=== PATIENT | female | born 1940 | race Caucasian/White ===

== ENCOUNTER 2023-05-06 10:40 | Emergency (ER) | payer MEDICARE ==
--- NOTE | 2023-05-06 11:14 | ED ---
General Adult HPI - General Chief complaint: Upper Respiratory Infection Stated complaint: Hemoptysis Time Seen by Provider: 05/06/23 10:51 Source: patient, EMS, RN notes reviewed Mode of arrival: EMS Limitations: no limitations - History of Present Illness Initial comments: Patient is an 82-year-old female presenting to the ER via EMS with chief complai nt of coughing up blood. Patient was sent here by her PCP, Dr. Kong. Patient states she has been coughing up blood for the past week. Patient states she has been having mild shortness of breath with exertion. She states it is hard to vaccuum for awhile now. Patient also reports she recently had a medication changed to amlodipine for blood pressure. Patient states her blood pressures have been running somewhat high denies any headache, double vision, nausea/vomiting or dizziness. Patient is a daily smoker of 10-12 cigarettes. Patient reports she has no other medical history. Patient denies any recent fevers, chills, night sweats, congestion, runny nose, chest pain, constipation/diarrhea, peripheral edema. - Related Data Home Medications Medication Instructions Recorded Confirmed Atorvastatin [Lipitor] 40 mg PO DAILY 05/06/23 05/06/23 Cetirizine HCl 10 mg PO DAILY 05/06/23 05/06/23 Docusate [Colace] 100 mg PO HS 05/06/23 05/06/23 Fluticasone/Umeclidin/Vilanter 1 puff INHALATION RT-DAILY 05/06/23 05/06/23 [Trelegy Ellipta 100-62.5-25] Montelukast [Singulair] 10 mg PO DAILY 05/06/23 05/06/23 Omeprazole 40 mg PO DAILY 05/06/23 05/06/23 Triamterene-Hctz 75-50Mg [Maxzide 1 tab PO DAILY 05/06/23 05/06/23 75-50] amLODIPine [Norvasc] 2.5 mg PO BID 05/06/23 05/06/23 Allergies Allergy/AdvReac Type Severity Reaction Status Date / Time lisinopril AdvReac Cough Verified 05/06/23 12:51 Review of Systems ROS Statement: Those systems with pertinent positive or pertinent negative responses have been documented in the HPI. ROS Other: All systems not noted in ROS Statement are negative. Past Medical History Past Medical History: Asthma, COPD, Hyperlipidemia, Hypertension, Renal Disease Additional Past Medical History / Comment(s): anemia, CKD stage 3, History of Any Multi-Drug Resistant Organisms: None Reported Past Surgical History: Hysterectomy, Joint Replacement Additional Past Surgical History / Comment(s): Bypass on AAA, knee replacement, cataracts Past Psychological History: No Psychological Hx Reported Smoking Status: Current every day smoker Past Alcohol Use History: None Reported Past Drug Use History: None Reported General Exam Limitations: no limitations General appearance: alert, in no apparent distress Head exam: Present: atraumatic, normocephalic, normal inspection ENT exam: Present: normal exam, normal oropharynx, mucous membranes moist Neck exam: Present: normal inspection. Absent: tenderness, meningismus, ly mphadenopathy Respiratory exam: Present: normal lung sounds bilaterally. Absent: respiratory distress, wheezes, rales, rhonchi, stridor Cardiovascular Exam: Present: regular rate, normal rhythm, normal heart sounds. Absent: systolic murmur, diastolic murmur, rubs, gallop, clicks GI/Abdominal exam: Present: soft, normal bowel sounds. Absent: distended, tenderness, guarding, rebound, rigid Neurological exam: Present: alert, oriented X3, CN II-XII intact Psychiatric exam: Present: normal affect, normal mood Skin exam: Present: warm, dry, intact, normal color. Absent: rash Course Vital Signs 05/06/23 05/06/23 05/06/23 10:52 10:53 10:57 Temperature 98.8 F Pulse Rate 77 75 Respiratory 18 18 Rate Blood Pressure 195/102 195/102 O2 Sat by Pulse 96 100 Oximetry 05/06/23 05/06/23 05/06/23 11:00 11:10 11:20 Temperature Pulse Rate 75 74 75 Respiratory Rate Blood Pressure 201/94 O2 Sat by Pulse 98 96 98 Oximetry 05/06/23 05/06/23 05/06/23 11:30 11:40 11:50 Temperature Pulse Rate 69 72 75 Respiratory Rate Blood Pressure 195/96 O2 Sat by Pulse 95 96 93 L Oximetry 05/06/23 05/06/23 05/06/23 12:00 12:10 12:20 Temperature Pulse Rate 73 73 73 Respiratory Rate Blood Pressure O2 Sat by Pulse 96 95 95 Oximetry 05/06/23 05/06/23 05/06/23 12:30 12:40 12:50 Temperature Pulse Rate 75 76 Respiratory Rate Blood Pressure 195/96 180/78 O2 Sat by Pulse 96 91 L Oximetry 05/06/23 05/06/23 05/06/23 13:00 13:10 13:20 Temperature Pulse Rate 71 75 73 Respiratory Rate Blood Pressure 165/88 O2 Sat by Pulse 96 96 95 Oximetry 05/06/23 05/06/23 05/06/23 13:30 13:40 13:50 Temperature Pulse Rate 72 71 71 Respiratory Rate Blood Pressure O2 Sat by Pulse 92 L 94 L 96 Oximetry 05/06/23 05/06/23 14:00 14:10 Temperature Pulse Rate 71 70 Respiratory Rate Blood Pressure 188/97 O2 Sat by Pulse 96 96 Oximetry Medical Decision Making - Medical Decision Making Was pt. sent in by a medical professional or institution (, PA, [employer]ER, urgent care, hospital, or longterm...) When possible be specific @ -Dr. Kong due to hemoptysis Did you speak to anyone other than the patient for history (EMS, parent, family, police, friend...)? What history was obtained from this source @ -No Did you review nursing and triage notes (agree or disagree)? Why? @ -I reviewed and agree with nursing and triage notes Were old charts reviewed (outside hosp., previous admission, EMS record, old EKG, old radiological studies, urgent care reports/EKG's, longterm records)? Report findings @ -No old charts were reviewed Differential Diagnosis (chest pain, altered mental status, abdominal pain women, abdominal pain men, vaginal bleeding, weakness, fever, dyspnea, syncope, headache, dizziness, GI bleed, back pain, seizure, CVA, palpatations, mental health, musculoskeletal)? @ -Differential Dyspnea: Coronary syndrome, arrhythmia, tamponade, asthma, COPD, pulmonary embolism, pneumonia, pneumothorax, pulmonary effusion, anaphy laxis, diabetic ketoacidosis, flailed chest, pulmonary contusion, diaphragmatic rupture, anemia, neuromuscular, this is not meant to be an all-inclusive list. EKG interpreted by me (3pts min.). @ -As above X-rays interpreted by me (1pt min.). @ -Chest xray was significant for COPD changes. No definitive acute cardiopulmonary process. CT interpreted by me (1pt min.). @ -CTA chest showed no evidence of pulmonary embolism. There were chronic emphysematous changes. Marked honeycombing in the RUL. No mass or nodule present. There is an enlarged 18 mm hilar lymph node on the right. No other acute cardiopulmonary process. U/S interpreted by me (1pt. min.). @ -None done What testing was considered but not performed or refused? (CT, X-rays, U/S, labs)? Why? @ -None What meds were considered but not given or refused? Why? @ -None Did you discuss the management of the patient with other professionals (professionals i.e. , PA, [employer]ST[employer]ER, lab, RT, psych nurse, child protective services social worker, freight car cleaner [employer], teacher, recruitment officer, caseworker)? Give summary @ -No Was smoking cessation discussed for >3mins.? @ -I discussed smoking cessation for greater than 3 minutes. The risk of smoking were discussed with the patient including but not limited to risks of cancer, stroke, coronary artery disease and COPD. Also discussed with patient were multiple methods of quitting smoking. Lastly we discussed the financial cost of smoking. Was critical care preformed (if so, how long)? @ -No Were there social determinants of health that impacted care today? How? (Homelessness, low income, unemployed, alcoholism, drug addiction, transportation, low edu. Level, literacy, decrease access to med. care, long-term, rehab)? @ -No Was there de-escalation of care discussed even if they declined (Discuss DNR or withdrawal of care, Hospice)? DNR status @ -No What co-morbidities impacted this encounter? (DM, HTN, Smoking, COPD, CAD, Cancer, CVA, ARF, Chemo, Hep., AIDS, mental health diagnosis, sleep apnea, morbid obesity)? @ -Hypertension Was patient admitted / discharged? Hospital course, mention meds given and route, prescriptions, significant lab abnormalities, going to OR and other pertinent info. @ -Discharge. Patient is an 82-year-old female presented ER with chief complaint of hemoptysis. Upon examination, patient's vital signs were stable. Physical exam was unremarkable. Labs obtained in the ER were significant for white blood cell count is 7.5, d-dimer was 3.71, PT 9.8, APTT 21.0. Cephid was negative. Chest xray was significant for COPD changes. No definitive acute cardiopulmonary process. Due to elevated d-dimer CTA was performed. CTA chest showed no evidence of pulmonary embolism. There were chronic emphysematous changes. Marked honeycombing in the RUL. No mass or nodule present. There is an enlarged 18 mm hilar lymph node on the right. No other acute cardiopulmonary process. EKG showed normal sinus rhythm with no acute ST segment or T-wave abnormalities noted. Labs and imaging findings were discussed with patient and family, at bedside. I discussed smoking cessation for greater than 3 minutes. The risk of smoking were discussed with the patient including but not limited to risks of cancer, stroke, coronary artery disease and COPD. Also discussed with patient were multiple methods of quitting smoking. Lastly we discussed the financial cost of smoking. Patient will be discharged in stable condition with follow-up to PCP. Return parameters were discussed. Patient expressed understanding and agreement with care plan. Undiagnosed new problem with uncertain prognosis? @ -No Drug Therapy requiring intensive monitoring for toxicity (Heparin, Nitro, Insulin, Cardizem)? @ -No Were any procedures done? @ -No Diagnosis/symptom? @ -Bronchitis Acute, or Chronic, or Acute on Chronic? @ -Acute on Chronic Uncomplicated (without systemic symptoms) or Complicated (systemic symptoms)? @ -Complicated Side effects of treatment? @ -No Exacerbation, Progression, or Severe Exacerbation? @ -No Poses a threat to life or bodily function? How? (Chest pain, USA, SC, pneumonia, PE, COPD, DKA, ARF, appy, cholecystitis, CVA, Diverticulitis, Homicidal, Suicidal, threat to staff... and all critical care pts) @ -Yes, COPD can casue hypoxia which is life threatening. - Lab Data Result diagrams: 05/06/23 12:00 05/06/23 12:02 Lab Results 05/06/23 05/06/23 05/06/23 Range/Units 12:00 12:02 12:02 WBC 7.5 (3.8-10.6) k/uL RBC 4.18 (3.80-5.40) m/uL Hgb 11.5 (11.4-16.0) gm/dL Hct 34.7 (34.0-46.0) % MCV 82.9 (80.0-100.0) fL MCH 27.5 (25.0-35.0) pg MCHC 33.1 (31.0-37.0) g/dL RDW 23.9 H (11.5-15.5) % Plt Count 333 (150-450) k/uL MPV 7.7 Neutrophils % 68 % Lymphocytes % 19 % Monocytes % 9 % Eosinophils % 2 % Basophils % 1 % Neutrophils # 5.1 (1.3-7.7) k/uL Lymphocytes # 1.4 (1.0-4.8) k/uL Monocytes # 0.6 (0-1.0) k/uL Eosinophils # 0.1 (0-0.7) k/uL Basophils # 0.0 (0-0.2) k/uL Anisocytosis Moderate Microcytosis Moderate PT 9.8 L (10.0-12.5) sec INR 0.9 (<1.2) APTT 21.0 L (22.0-30.0) sec D-Dimer 3.71 H (<0.60) mg/L FEU Sodium 133 L (137-145) mmol/L Potassium 3.2 L (3.5-5.1) mmol/L Chloride 96 L (98-107) mmol/L Carbon Dioxide 23 (22-30) mmol/L Anion Gap 14 mmol/L BUN 26 H (7-17) mg/dL Creatinine 0.88 (0.52-1.04) mg/dL Est GFR (CKD-EPI)AfAm 71 (>60 ml/min/1.73 sqM) Est GFR (CKD-EPI)NonAf 62 (>60 ml/min/1.73 sqM) Glucose 93 (74-99) mg/dL Plasma Lactic Acid Claudio (0.7-2.0) mmol/L Calcium 9.3 (8.4-10.2) mg/dL Total Bilirubin 0.5 (0.2-1.3) mg/dL AST 29 (14-36) U/L ALT 15 (4-34) U/L Alkaline Phosphatase 93 (38-126) U/L Troponin I (0.000-0.034) ng/mL Total Protein 6.7 (6.3-8.2) g/dL Albumin 4.1 (3.5-5.0) g/dL Influenza Type A (PCR) (Not Detectd) Influenza Type B (PCR) (Not Detectd) RSV (PCR) (Not Detectd) SARS-CoV-2 (PCR) (Not Detectd) 05/06/23 05/06/23 05/06/23 Range/Units 12:02 12:02 12:02 WBC (3.8-10.6) k/uL RBC (3.80-5.40) m/uL Hgb (11.4-16.0) gm/dL Hct (34.0-46.0) % MCV (80.0-100.0) fL MCH (25.0-35.0) pg MCHC (31.0-37.0) g/dL RDW (11.5-15.5) % Plt Count (150-450) k/uL MPV Neutrophils % % Lymphocytes % % Monocytes % % Eosinophils % % Basophils % % Neutrophils # (1.3-7.7) k/uL Lymphocytes # (1.0-4.8) k/uL Monocytes # (0-1.0) k/uL Eosinophils # (0-0.7) k/uL Basophils # (0-0.2) k/uL Anisocytosis Microcytosis PT (10.0-12.5) sec INR (<1.2) APTT (22.0-30.0) sec D-Dimer (<0.60) mg/L FEU Sodium (137-145) mmol/L Potassium (3.5-5.1) mmol/L Chloride (98-107) mmol/L Carbon Dioxide (22-30) mmol/L Anion Gap mmol/L BUN (7-17) mg/dL Creatinine (0.52-1.04) mg/dL Est GFR (CKD-EPI)AfAm (>60 ml/min/1.73 sqM) Est GFR (CKD-EPI)NonAf (>60 ml/min/1.73 sqM) Glucose (74-99) mg/dL Plasma Lactic Acid Claudio 0.8 (0.7-2.0) mmol/L Calcium (8.4-10.2) mg/dL Total Bilirubin (0.2-1.3) mg/dL AST (14-36) U/L ALT (4-34) U/L Alkaline Phosphatase (38-126) U/L Troponin I 0.012 (0.000-0.034) ng/mL Total Protein (6.3-8.2) g/dL Albumin (3.5-5.0) g/dL Influenza Type A (PCR) Not Detected (Not Detectd) Influenza Type B (PCR) Not Detected (Not Detectd) RSV (PCR) Not Detected (Not Detectd) SARS-CoV-2 (PCR) Not Detected (Not Detectd) - EKG Data -: EKG Interpreted by Me EKG Comments: EKG taken at 11:05 shows a normal sinus rhythm with no acute ST segment or T- wave abnormalities noted. Ventricular rate 72, NV interval 158, QRS duration 88, QT/QTC 410/435. - Radiology Data Radiology results: report reviewed, image reviewed Disposition Clinical Impression: Emphysema of lung Disposition: HOME SELF-CARE Condition: Stable Instructions (If sedation given, give patient instructions): How to Stop Smoking (ED) Additional Instructions: Please return to the Emergency Department if symptoms worsen or any other concerns. Is patient prescribed a controlled substance at d/c from ED?: No Referrals: Gilson Kong MD [Primary Care Provider] - 1-2 days Time of Disposition: 16:33
[2023-05-06 12:15] LABS: Anisocytosis Moderate; Basophils % (A) 1 %; Eosinophils # (A) 0.1 k/uL (0-0.7); Eosinophils % (A) 2 %; HCT 34.7 % (34.0-46.0); HGB 11.5 gm/dL (11.4-16.0); Lymphocytes # (A) 1.4 k/uL (1.0-4.8); Lymphocytes % (A) 19 %; MCH 27.5 pg (25.0-35.0); MCHC 33.1 g/dL (31.0-37.0); MCV 82.9 fL (80.0-100.0); Mean Platelet Volume 7.7; Microcytosis Moderate; Monocytes # (A) 0.6 k/uL (0-1.0); Monocytes % (A) 9 %; Neutrophils # (A) 5.1 k/uL (1.3-7.7); Neutrophils % (A) 68 %; Platelet Count 333 k/uL (150-450); RBC 4.18 m/uL (3.80-5.40); RDW 23.9 % (11.5-15.5); WBC 7.5 k/uL (3.8-10.6)
[2023-05-06 12:29] LABS: ALT 15 U/L (4-34); AST 29 U/L (14-36); African American GFR (CKD) 71 (>60 ml/min/1.73 sqM); Albumin 4.1 g/dL (3.5-5.0); Alkaline Phosphatase 93 U/L (38-126); Anion Gap 14 mmol/L; Blood Urea Nitrogen 26 mg/dL (7-17); Calcium 9.3 mg/dL (8.4-10.2); Carbon Dioxide 23 mmol/L (22-30); Chloride 96 mmol/L (98-107); Glucose 93 mg/dL (74-99); Non-African American GFR(CKD) 62 (>60 ml/min/1.73 sqM); Potassium 3.2 mmol/L (3.5-5.1); Sodium 133 mmol/L (137-145); Total Bilirubin 0.5 mg/dL (0.2-1.3); Total Protein 6.7 g/dL (6.3-8.2)
[2023-05-06 12:41] LABS: INR 0.9 (<1.2); Prothrombin Time 9.8 sec (10.0-12.5)
--- NOTE | 2023-05-06 12:52 | XR ---
EXAMINATION TYPE: XR chest 2V DATE OF EXAM: 05/06/2023 COMPARISON: None HISTORY: 82 year-old female shortness of breath, difficulty breathing, coughing up blood TECHNIQUE: PA and lateral views FINDINGS: Heart normal size. Atherosclerotic arch calcifications. Mild interstitial prominence. Mild hyperinfla tion. No consolidation or pleural effusion. Endovascular abdominal aortic stent graft. IMPRESSION: COPD. No definite acute process.
--- NOTE | 2023-05-06 15:31 | CT ---
EXAMINATION TYPE: CT chest angio for PE DATE OF EXAM: 05/06/2023 COMPARISON: None HISTORY: Elevated d-dimer and hemopytsis. CT DLP: 224.5 mGycm Automated exposure control for dose reduction was used. CONTRAST: CT Chest for pulmonary embolism performed with with IV Contrast, patient injected with 64ml mL of Iso brian 370. FINDINGS: There are moderate emphysematous changes. There is marked honeycombing in the right upper lobe. There is no lung mass or nodule. There is no pleural effusion or pneumothorax. The great vessels chest are normal and there is no axillary or mediastinal adenopathy. There is an en larged 18 mm right hilar lymph node. There are no filling defects within the pulmonary arteries or branches and no evidence of pulmonary e mbolism. IMPRESSION: 1. No evidence of pulmonary embolism. 2. Chronic lung changes as described above. 3. No acute cardiopulmonary disease.
[2023-05-06 17:40] VITALS: BP 125/108; PULSE 78; RESP 16; TEMP 98.9
== END 2023-05-06 17:27 | disposition home or self-care (01) ==
LOC: EC 10:40
DX: J43.9 Emphysema, unspecified (principal); J44.89 Other specified chronic obstructive pulmonary disease; E78.5 Hyperlipidemia, unspecified; I10 Essential (primary) hypertension; F17.200 Nicotine dependence, unspecified, uncomplicated; Z79.899 Other long term (current) drug therapy; Z88.8 Allergy status to other drugs, medicaments and biological substances; Z20.822 Contact with and (suspected) exposure to COVID-19
CPT/HCPCS: 99285; 36415; 93005; 85379; 80053; 83605; 84484; 85025; 85610; 85730; 87636; 71046; 71275; Q9967

== ENCOUNTER 2023-12-02 21:56 | Inpatient (IN) | payer MEDICARE ==
--- NOTE | 2023-12-02 21:59 | ED ---
SOB HPI - General Stated Complaint: SOB Time Seen by Provider: 12/02/23 21:56 Source: RN notes reviewed, old records reviewed Limitations: no limitations - History of Present Illness Initial Comments: This is a 83-year-old female to ER for severe dyspnea and shortness of breath. Patient has history of COPD and presents in new onset atrial fibrillation with RVR with significantly high heart rate. MD Complaint: shortness of breath, cough, chest pain, "asthma attack", anxiety -: days(s) Radiation: back Severity: severe Severity scale (1-10): 8 Quality: aching Consistency: constant Improves With: nothing Worsens With: lying flat Known History Of: COPD, asthma Context: anxiety Associated Symptoms: cough, sputum production Treatments Prior to Arrival: none - Related Data Home Medications Medication Instructions Recorded Confirmed Atorvastatin [Lipitor] 40 mg PO DAILY 05/06/23 12/03/23 Cetirizine HCl 10 mg PO DAILY 05/06/23 12/03/23 Montelukast [Singulair] 10 mg PO DAILY 05/06/23 12/03/23 Omeprazole 40 mg PO DAILY 05/06/23 12/03/23 Triamterene-Hctz 75-50Mg [Maxzide 1 tab PO DAILY 05/06/23 12/03/23 75-50] amLODIPine [Norvasc] 2.5 mg PO DAILY 05/06/23 12/03/23 Cyclobenzaprine [Flexeril] 5 mg PO TID 12/03/23 12/03/23 carvediloL [Coreg] 6.25 mg PO BID 12/03/23 12/03/23 Allergies Allergy/AdvReac Type Severity Reaction Status Date / Time lisinopril AdvReac Cough Verified 12/03/23 09:19 Review of Systems ROS Statement: Those systems with pertinent positive or pertinent negative responses have been documented in the HPI. ROS Other: All systems not noted in ROS Statement are negative. Past Medical History Past Medical History: Asthma, COPD, Hyperlipidemia, Hypertension, Renal Disease Additional Past Medical History / Comment(s): anemia, CKD stage 3, History of Any Multi-Drug Resistant Organisms: None Reported Past Surgical History: Hysterectomy, Joint Replacement Additional Past Surgical History / Comment(s): Bypass on AAA, knee replacement, cataracts Past Psychological History: No Psychological Hx Reported Smoking Status: Current every day smoker Past Alcohol Use History: None Reported Past Drug Use History: None Reported General Exam General appearance: alert, in no apparent distress Head exam: Present: atraumatic, normocephalic, normal inspection Eye exam: Present: normal appearance, PERRL, EOMI. Absent: scleral icterus, conjunctival injection, periorbital swelling ENT exam: Present: normal exam, mucous membranes moist Neck exam: Present: normal inspection. Absent: tenderness, meningismus, lymphadenopathy Respiratory exam: Present: normal lung sounds bilaterally. Absent: respiratory distress, wheezes, rales, rhonchi, stridor Cardiovascular Exam: Present: regular rate, normal rhythm, normal heart sounds. Absent: systolic murmur, diastolic murmur, rubs, gallop, clicks GI/Abdominal exam: Present: soft, normal bowel sounds. Absent: distended, tenderness, guarding, rebound, rigid Extremities exam: Present: normal inspection, full ROM, normal capillary refill. Absent: tenderness, pedal edema, joint swelling, calf tenderness Back exam: Present: normal inspection Neurological exam: Present: alert, oriented X3, CN II-XII intact Psychiatric exam: Present: normal affect, normal mood Skin exam: Present: warm, dry, intact, normal color. Absent: rash Course Vital Signs 12/02/23 12/02/23 12/02/23 21:58 22:30 22:45 Temperature 99.9 F H Pulse Rate 184 H 168 H 147 H Respiratory 24 24 24 Rate Blood Pressure 149/115 157/103 138/121 O2 Sat by Pulse 96 85 L 94 L Oximetry 12/02/23 12/03/23 12/03/23 23:45 00:53 00:59 Temperature Pulse Rate 140 H 141 H 132 H Respiratory 24 Rate Blood Pressure 137/80 O2 Sat by Pulse 98 Oximetry 12/03/23 12/03/23 12/03/23 01:00 01:33 01:40 Temperature Pulse Rate 115 H 138 H 102 H Respiratory 22 22 22 Rate Blood Pressure 125/74 115/70 115/74 O2 Sat by Pulse 95 95 95 Oximetry 12/03/23 12/03/23 02:50 02:52 Temperature 97.8 F Pulse Rate 100 130 H Respiratory 22 16 Rate Blood Pressure 100/86 100/86 O2 Sat by Pulse 97 94 L Oximetry - Reevaluation(s) Reevaluation #1: 12/02/23 23:17 Medical records reviewed Reevaluation #2: 12/02/23 23:17 Patient symptoms improving Reevaluation #3: 12/02/23 23:17 Patient informed of results questions answered Reevaluation #4: Was pt. sent in by a medical professional or institution ([employer] Mon, FIRE AND EXPLOSION INVESTIGATOR, urgent care, hospital, or fci...) When possible be specific @ -no Did you speak to anyone other than the patient for history (EMS, parent, family, police, friend...)? What history was obtained from this source @ -no Did you review nursing and triage notes (agree or disagree)? Why? @ -agree Are old charts reviewed (outside hosp., previous admission, EMS record, old EKG, old radiological studies, urgent care reports/EKG's, fci records)? Report findings @ -yes Differential Diagnosis (chest pain, altered mental status, abdominal pain women, abdominal pain men, vaginal bleeding, weakness, fever, dyspnea, syncope, headache, dizziness, GI bleed, back pain, seizure, CVA, palpatations, mental health, musculoskeletal)? @ -prior EKG interpreted by me (3pts min.). @ -yes X-rays interpreted by me (1pt min.). @ -yes negative for acute disease CT interpreted by me (1pt min.). @ -no U/S interpreted by me (1pt. min.). @ -no What testing was considered but not performed or refused? (CT, X-rays, U/S, labs)? Why? @ -none What meds were considered but not given or refused? Why? @ -none Did you discuss the management of the patient with other professionals (professionals i.e. , [employer], FIRE AND EXPLOSION INVESTIGATOR, lab, RT, psych nurse, social services coordinator, receiving clerk, teacher, property utilization officer, case checker)? Give summary @ -no Was smoking cessation discussed for >3mins.? @ -no Was critical care preformed (if so, how long)? @ -yes31 Were there social determinants of health that impacted care today? How? (Homelessness, low income, unemployed, alcoholism, drug addiction, transportation, low edu. Level, literacy, decrease access to med. care, intermediate, rehab)? @ -none Was there de-escalation of care discussed even if they declined (Discuss DNR or withdrawal of care, Hospice)? DNR status @ -no What co-morbidities impacted this encounter? (DM, HTN, Smoking, COPD, CAD, Cancer, CVA, ARF, Chemo, Hep., AIDS, mental health diagnosis, sleep apnea, morbid obesity)? @ -none Was patient admitted / discharged? Hospital course, mention meds given and route, prescriptions, significant lab abnormalities, going to OR and other pertinent info. @ - 83 female to ER with respiratory failure. Hypoxic respiratory failure and A-fib with RVR Admitted Undiagnosed new problem with uncertain prognosis? @ -no Drug Therapy requiring intensive monitoring for toxicity (Heparin, Nitro, Insulin, Cardizem)? @ -no Were any procedures done? @ -no Diagnosis/symptom? @ -Story failure A-fib with RVR Acute, or Chronic, or Acute on Chronic? @ -Acute Uncomplicated (without systemic symptoms) or Complicated (systemic symptoms)? @ -Complicated Side effects of treatment? @ -no Exacerbation, Progression, or Severe Exacerbation? @ -exacerbation Poses a threat to life or bodily function? How? (Chest pain, [place], [place], pneumonia, PE, COPD, DKA, ARF, appy, cholecystitis, CVA, Diverticulitis, Homicidal, Suicidal, threat to staff... and all critical care pts) @ -yes respiratory failure Reevaluation #5: Differential Dyspnea: Coronary syndrome, arrhythmia, tamponade, asthma, COPD, pulmonary embolism, pneumonia, pneumothorax, pulmonary effusion, anaphylaxis, diabetic ketoacidosis, flailed chest, pulmonary contusion, diaphragmatic rupture, anemia, neuromuscular, this is not meant to be an all-inclusive list. Differential Palpitations Ventricular arrhythmias, atrial arrhythmias, myocardial infarction, anemia, thyrotoxicosis, electrolyte imbalance, hypokalemia, pulmonary embolism, pulmonary disease, drugs, alcohol, anxiety, stress.... This is not meant to be an all-inclusive list. Medical Decision Making - Medical Decision Making 83 female to ER with respiratory failure. Hypoxic respiratory failure and A-fib with RVR - Lab Data Result diagrams: 12/03/23 12:22 12/03/23 12:22 Lab Results 12/02/23 12/02/23 12/02/23 Range/Units 22:06 22:06 22:06 WBC 7.6 (3.8-10.6) k/uL RBC 4.46 (3.80-5.40) m/uL Hgb 12.1 (11.4-16.0) gm/dL Hct 35.9 (34.0-46.0) % MCV 80.4 (80.0-100.0) fL MCH 27.1 (25.0-35.0) pg MCHC 33.7 (31.0-37.0) g/dL RDW 15.6 H (11.5-15.5) % Plt Count 224 (150-450) k/uL MPV 7.7 Neutrophils % 77 % Lymphocytes % 13 % Monocytes % 7 % Eosinophils % 0 % Basophils % 0 % Neutrophils # 5.9 (1.3-7.7) k/uL Lymphocytes # 1.0 (1.0-4.8) k/uL Monocytes # 0.5 (0-1.0) k/uL Eosinophils # 0.0 (0-0.7) k/uL Basophils # 0.0 (0-0.2) k/uL Hypochromasia Slight PT 10.4 (10.0-12.5) sec INR 0.9 (<1.2) APTT 24.1 (22.0-30.0) sec Sodium 134 L (137-145) mmol/L Potassium 3.2 L (3.5-5.1) mmol/L Chloride 100 (98-107) mmol/L Carbon Dioxide 22 (22-30) mmol/L Anion Gap 12 mmol/L BUN 37 H (7-17) mg/dL Creatinine 1.33 H (0.52-1.04) mg/dL Est GFR (CKD-EPI)AfAm 43 (>60 ml/min/1.73 sqM) Est GFR (CKD-EPI)NonAf 37 (>60 ml/min/1.73 sqM) Glucose 140 H (74-99) mg/dL Plasma Lactic Acid Claudio (0.7-2.0) mmol/L Calcium 9.2 (8.4-10.2) mg/dL Magnesium 2.1 (1.6-2.3) mg/dL Total Bilirubin 0.6 (0.2-1.3) mg/dL AST 75 H (14-36) U/L ALT 35 H (4-34) U/L Alkaline Phosphatase 67 (38-126) U/L Troponin I (0.000-0.034) ng/mL NT-Pro-B Natriuret Pep 56606 pg/mL Total Protein 6.7 (6.3-8.2) g/dL Albumin 4.1 (3.5-5.0) g/dL 12/02/23 12/02/23 Range/Units 22:06 22:06 WBC (3.8-10.6) k/uL RBC (3.80-5.40) m/uL Hgb (11.4-16.0) gm/dL Hct (34.0-46.0) % MCV (80.0-100.0) fL MCH (25.0-35.0) pg MCHC (31.0-37.0) g/dL RDW (11.5-15.5) % Plt Count (150-450) k/uL MPV Neutrophils % % Lymphocytes % % Monocytes % % Eosinophils % % Basophils % % Neutrophils # (1.3-7.7) k/uL Lymphocytes # (1.0-4.8) k/uL Monocytes # (0-1.0) k/uL Eosinophils # (0-0.7) k/uL Basophils # (0-0.2) k/uL Hypochromasia PT (10.0-12.5) sec INR (<1.2) APTT (22.0-30.0) sec Sodium (137-145) mmol/L Potassium (3.5-5.1) mmol/L Chloride (98-107) mmol/L Carbon Dioxide (22-30) mmol/L Anion Gap mmol/L BUN (7-17) mg/dL Creatinine (0.52-1.04) mg/dL Est GFR (CKD-EPI)AfAm (>60 ml/min/1.73 sqM) Est GFR (CKD-EPI)NonAf (>60 ml/min/1.73 sqM) Glucose (74-99) mg/dL Plasma Lactic Acid Claudio 1.8 (0.7-2.0) mmol/L Calcium (8.4-10.2) mg/dL Magnesium (1.6-2.3) mg/dL Total Bilirubin (0.2-1.3) mg/dL AST (14-36) U/L ALT (4-34) U/L Alkaline Phosphatase (38-126) U/L Troponin I 0.122 H* (0.000-0.034) ng/mL NT-Pro-B Natriuret Pep pg/mL Total Protein (6.3-8.2) g/dL Albumin (3.5-5.0) g/dL - EKG Data -: EKG Interpreted by Me (EKG is A-fib with RVR 175 QRS 77 QTc 293) - Radiology Data Radiology results: report reviewed (Chest x-ray is negative for acute disease), image reviewed Critical Care Time Critical Care Time: Yes Total Critical Care Time: 31 Disposition Clinical Impression: Tachycardia, Palpitations, Atrial fibrillation, Hypoxia, Atrial fibrillation with rapid ventricular response Disposition: ADMITTED IP TO THIS HOSP Condition: Fair Is patient prescribed a controlled substance at d/c from ED?: No Time of Disposition: 00:45
[2023-12-02] MEDS: SODIUM CHLORIDE 0.9% 500 ML 500 ML IV STA (22:05)
[2023-12-02] MEDS: SODIUM CHLORIDE 0.9% 1,000 ML IV STA (22:05)
[2023-12-02] MEDS: methylPREDNISolone SOD SUCCI 125 MG/2 ML VIAL IV STA (22:09)
[2023-12-02] MEDS: DILTIAZEM 125 MG in SODIUM CHLORIDE 0.9% 100 ML IV SCH (22:24)
[2023-12-02] MEDS: DILTIAZEM DRIP BOLUS FROM BAG 1 MG SOLN IV ONE ×3 (22:25→23:49)
[2023-12-02 22:30] LABS: African American GFR (CKD) 43 (>60 ml/min/1.73 sqM); Albumin 4.1 g/dL (3.5-5.0); Anion Gap 12 mmol/L; Blood Urea Nitrogen 37 mg/dL (7-17); Carbon Dioxide 22 mmol/L (22-30); Chloride 100 mmol/L (98-107); Glucose 140 mg/dL (74-99); INR 0.9 (<1.2); Non-African American GFR(CKD) 37 (>60 ml/min/1.73 sqM); Partial Thromboplastin Time 24.1 sec (22.0-30.0); Potassium 3.2 mmol/L (3.5-5.1); Prothrombin Time 10.4 sec (10.0-12.5); Sodium 134 mmol/L (137-145); Total Protein 6.7 g/dL (6.3-8.2)
[2023-12-02 22:31] LABS: ALT 35 U/L (4-34); AST 75 U/L (14-36); Alkaline Phosphatase 67 U/L (38-126); Calcium 9.2 mg/dL (8.4-10.2); Magnesium 2.1 mg/dL (1.6-2.3); Total Bilirubin 0.6 mg/dL (0.2-1.3)
[2023-12-02 22:33] LABS: Basophils % (A) 0 %; Eosinophils % (A) 0 %; HCT 35.9 % (34.0-46.0); HGB 12.1 gm/dL (11.4-16.0); Hypochromasia Slight; Lymphocytes % (A) 13 %; MCH 27.1 pg (25.0-35.0); MCHC 33.7 g/dL (31.0-37.0); MCV 80.4 fL (80.0-100.0); Mean Platelet Volume 7.7; Monocytes # (A) 0.5 k/uL (0-1.0); Monocytes % (A) 7 %; Neutrophils # (A) 5.9 k/uL (1.3-7.7); Neutrophils % (A) 77 %; Platelet Count 224 k/uL (150-450); RBC 4.46 m/uL (3.80-5.40); RDW 15.6 % (11.5-15.5); WBC 7.6 k/uL (3.8-10.6)
[2023-12-02 22:38] LABS: NT-Pro-B-Type Natriuretic Pept 19000 pg/mL
[2023-12-02] MEDS ORDERED: MAGNESIUM SULFATE-D5W PMX 1 GM in DEXTROSE/WATER 1 100ML.BAG IVPB SCH (22:45)
[2023-12-02] MEDS: TERBUTALINE 1 MG/ML VIAL SQ STA (23:51)
[2023-12-02] MEDS: MAGNESIUM SULFATE-D5W PMX 1 GM in DEXTROSE/WATER 1 100ML.BAG IVPB ONE (23:54)
[2023-12-02] MEDS: POTASSIUM BICARBONATE/CIT AC 20 MEQ TABLET.EFF PO ONE (23:57)
[2023-12-03] MEDS: POTASSIUM BICARBONATE/CIT AC 20 MEQ TABLET.EFF PO ONE
[2023-12-03] MEDS: IPRATROPIUM-ALBUTEROL 3 ML NEB INHALATION STA ×2 (00:01→03:28)
[2023-12-03] MEDS ORDERED: NALOXONE 0.4 MG/ML 1 ML VIAL IVP PRN (00:37)
[2023-12-03] MEDS: FUROSEMIDE 10 MG/ML 4 ML VIAL IV SCH (01:18)
[2023-12-03] MEDS: DILTIAZEM 5 MG/ML 5 ML VIAL IVP STA (01:32)
[2023-12-03] MEDS: METOPROLOL TARTRATE 5 MG/5 ML VIAL IVP STA (01:33)
--- NOTE | 2023-12-03 01:47 | XR ---
EXAM: XR Chest, 1 View CLINICAL HISTORY: ITS.REASON XR Reason: sob TECHNIQUE: Frontal view of the chest. COMPARISON: No relevant prior studies available. FINDINGS: Lungs: Unremarkable. No consolidation. Pleural space: Unremarkable. No pneumothorax. Heart: Unremarkable. No cardiomegaly. Mediastinum: Unremarkable. Normal mediastinal contour. Bones/joints: Unremarkable. No acute fracture. IMPRESSION: No consolidation.
[2023-12-03] MEDS: methylPREDNISolone SOD SUCCI 125 MG/2 ML VIAL IV SCH (05:40)
[2023-12-03] MEDS ORDERED: HEPARIN SODIUM 1,000 UN/ML (10ML VL) IV PRN (06:10)
[2023-12-03] MEDS: DILTIAZEM DRIP BOLUS FROM BAG 1 MG SOLN IV ONE (06:16)
[2023-12-03] MEDS: HEPARIN SOD,PORK IN 0.45% NACL 25,000 UNIT in 0.45% NACL 1 250ML.BAG IV SCH (06:18)
[2023-12-03] MEDS: HEPARIN SODIUM 1,000 UN/ML (10ML VL) IV ONE (06:19)
--- NOTE | 2023-12-03 06:50 | P.CNPUL ---
History of Present Illness Consult date: 12/03/23 Requesting physician: Josue Pradhan Reason for consult: COPD Chief complaint: Shortness of breath History of present illness: Patient is an 83-year-old white female with past medical history significant for COPD, former tobacco smoker, hyperlipidemia, hypertension, AAA, chronic kidney disease. Her PCP is Dr. Kong. She presents to the emergency department late last night with a chief complaint of acute onset shortness of breath. She does have history of COPD. She Reportedly quit smoking approximately 1 year ago. Before this she was a one half to 1 pack/day smoker. While being evaluated in the emergency department, she was being found to be in new onset atrial fibrillation with rapid ventricular response with a rate of 175 bpm. She denies any history of atrial fibrillation or irregular heartbeat. She does not follow with a author agent. She was started on Cardizem infusion in the emergency department which is currently infusing at 5 mg/h. Heparin infusion also added by cardiology per protocol. On my evaluation, she is on a 15 L nonrebreather, oxygen saturation is 94%. Family is at bedside. She just got up to the bedside commode. In no acute respiratory distress at the moment. No accessory muscle use, conversational dyspnea. She denies any chest pain, heart palpitations, lightheadedness, syncopal events. She did fall while in the shower approximately 1 week ago. Denies hitting her head. Not on any blood thinners/anticoagulation. She states that her legs just gave out. Chest x-ray does not show any focal consolidation or no evidence of pneumonia. Cardiac silhouette appears stable without any vascular congestion or corina pulmonary edema. No pleural effusions or pneumothoraces. CBC on arrival unremarkable. No leukocytosis. CMP: Sodium 134, potassium 3.2, chloride 100, serum bicarb 22, BUN 37, creatinine 1.33, glucose 140. Lactic acid 1.8. Normal saline infusing at 130 ml/hr. LFTs mildly elevated. Troponins 0.122, 0.102, and 0.087 res pectively. NT proBNP 19,000. During my evaluation, patient appears to have converted to normal sinus rhythm. Remaining vital signs are stable. Review of Systems REVIEW OF SYSTEMS: CONSTITUTIONAL: Denies any recent significant weight loss or weight gain. EYES: Denies change in vision. EARS, NOSE, MOUTH, THROAT: Denies headaches, denies sore throat. CARDIOVASCULAR: Denies chest pain, palpitations or syncopal episodes. RESPIRATORY: Admits acute on send shortness of breath, occasional minimally productive cough. Denies fevers, chills, chest pain, hemoptysis. GASTROINTESTINAL: Denies change in appetite, abdominal pain, nausea and vomiting, or diarrhea GENITOURINARY: Denies hematuria, denies infections. MUSKULOSKELETAL: Denies pain, denies swelling. INTEGUMENTARY: Denies rash, denies eczema. NEUROLOGICAL: Denies recent memory loss, no recent seizure activity. PSYCHIATRIC: Denies anxiety, denies depression. HEMATOLOGIC/LYMPHATIC: Denies anemia, denies enlarged lymph node Past Medical History Past Medical History: Asthma, COPD, Hyperlipidemia, Hypertension, Renal Disease Additional Past Medical History / Comment(s): anemia, CKD stage 3, History of Any Multi-Drug Resistant Organisms: None Reported Past Surgical History: Hysterectomy, Joint Replacement Additional Past Surgical History / Comment(s): Bypass on AAA, knee replacement, cataracts Past Psychological History: No Psychological Hx Reported Smoking Status: Current every day smoker, Former smoker Past Alcohol Use History: None Reported Past Drug Use History: None Reported Medications and Allergies Home Medications Medication Instructions Recorded Confirmed Type Atorvastatin [Lipitor] 40 mg PO DAILY 05/06/23 05/06/23 History Cetirizine HCl 10 mg PO DAILY 05/06/23 05/06/23 History Docusate [Colace] 100 mg PO HS 05/06/23 05/06/23 History Fluticasone/Umeclidin/Vilanter 1 puff INHALATION RT-DAILY 05/06/23 05/06/23 History [Trelegy Ellipta 100-62.5-25] Montelukast [Singulair] 10 mg PO DAILY 05/06/23 05/06/23 History Omeprazole 40 mg PO DAILY 05/06/23 05/06/23 History Triamterene-Hctz 75-50Mg [Maxzide 1 tab PO DAILY 05/06/23 05/06/23 History 75-50] amLODIPine [Norvasc] 2.5 mg PO BID 05/06/23 05/06/23 History Allergies Allergy/AdvReac Type Severity Reaction Status Date / Time lisinopril AdvReac Cough Verified 12/02/23 22:04 Physical Exam Vitals: Vital Signs Temp Pulse Pulse Resp BP BP Pulse Ox 12/03/23 05:43 138 H 19 12/03/23 03:21 97.6 F 121 H 21 111/64 91 L 12/03/23 02:52 97.8 F 130 H 16 100/86 94 L 12/03/23 02:50 100 22 100/86 97 12/03/23 01:40 102 H 22 115/74 95 12/03/23 01:33 138 H 22 115/70 95 12/03/23 01:00 115 H 22 125/74 95 12/03/23 00:59 132 H 12/03/23 00:53 141 H 12/02/23 23:45 140 H 24 137/80 98 12/02/23 22:45 147 H 24 138/121 94 L 12/02/23 22:30 168 H 24 157/103 85 L 12/02/23 21:58 99.9 F H 184 H 24 149/115 96 Intake and Output 12/02/23 12/02/23 12/03/23 14:59 22:59 06:59 Intake Total 41.167 Balance 41.167 Intake: Intake, IV Titration 41.167 Amount Diltiazem 125 mg In 41.167 Sodium Chloride 0.9% 100 ml @ 5 MG/HR 5 mls/hr IV .Q24H [facility] Rx#:[id number] Other: Voiding Method External Catheter Weight 58.967 kg 58.967 kg GENERAL EXAM: Alert, 83-year-old white female, just got to bed from bedside commode, on a 15 L nonrebreather, fairly comfortable in no apparent distress. HEAD: Normocephalic and atraumatic EYES: Normal reaction of pupils, equal size. NOSE: Clear with pink turbinates. THROAT: No erythema or exudates. NECK: No masses, no JVD. CHEST: No chest wall deformity. LUNGS: Equal air entry with markedly diminished lung sounds bilaterally. No crackles, wheeze, rhonchi or dullness. On a 15 L nonrebreather. No co nversational dyspnea or accessory muscle use.. CVS: S1 and S2 normal with no audible murmur, irregular rhythm. No extra heart sounds ABDOMEN: No hepatosplenomegaly, active bowel sounds, no guarding or rigidity. SPINE: No scoliosis or deformity SKIN: No rashes CENTRAL NERVOUS SYSTEM: No focal deficits, tone is normal in all 4 extremities. EXTREMITIES: There is no peripheral edema, clubbing, or cyanosis. Peripheral pulses are intact. Results - Laboratory Findings CBC and BMP: 12/02/23 22:06 12/02/23 22:06 PT/INR, D-dimer PT 10.4 sec (10.0-12.5) 12/02/23 22:06 INR 0.9 (<1.2) 12/02/23 22:06 Abnormal lab findings: Abnormal Labs 12/02/23 12/02/23 12/02/23 22:06 22:06 22:06 RDW 15.6 H Sodium 134 L Potassium 3.2 L BUN 37 H Creatinine 1.33 H Glucose 140 H AST 75 H ALT 35 H Troponin I 0.122 H* 12/03/23 12/03/23 01:22 04:18 RDW Sodium Potassium BUN Creatinine Glucose AST ALT Troponin I 0.102 H* 0.087 H* - Diagnostic Findings Chest x-ray: image reviewed Assessment and Plan Assessment: New onset atrial fibrillation with rapid ventricular response, currently on a Cardizem infusion at 5 mg/h and anticoagulated on IV heparin infusion per protocol. Patient appears to have converted on my evaluation. Possible acute COPD exacerbation Acute hypoxemic respiratory failure, secondary to above, Chest x-ray does not show any focal consolidation or no evidence of pneumonia. Cardiac silhouette appears stable without any vascular congestion or corina pulmonary edema. No pleural effusions or pneumothoraces. Elevated troponins, likely secondary to supply/demand mismatch Acute on chronic kidney disease History of hypertension History of hyperlipidemia History of abdominal aortic aneurysm Former tobacco dependence Plan: Patient's medications, labs, chest x-ray reviewed Start patient on combination of DuoNebs [id number], Symbicort inhaler and IV Solu-Medrol Chest x-ray shows no focal infiltrates or evidence pneumonia. On my evaluation, patient's atrial fibrillation with RVR appears to have converted into a normal sinus rhythm. Will follow-up with EKG Currently on Cardizem infusion at 5 mg/h Anticoagulated on heparin infusion per protocol Cardiology consulted for management of A-fib Patient is a DO NOT RESUSCITATE/DO NOT INTUBATE Will continue to follow I have personally seen and examined the patient, performed the documentation and the assessment and plan as written. Number of minutes spent on the visit: Time with Patient: Greater than 30
[2023-12-03] MEDS ORDERED: ALBUTEROL NEBULIZED 2.5 MG/3 ML INHALATION SCH (08:00)
[2023-12-03] MEDS: SYMBICORT 160-4.5 MCG INHALER INHALATION SCH (08:33)
[2023-12-03] MEDS: IPRATROPIUM-ALBUTEROL 3 ML NEB INHALATION SCH (08:33)
[2023-12-03] MEDS: FUROSEMIDE 40 MG TAB PO SCH (10:06)
[2023-12-03] MEDS: APIXABAN 2.5 MG TABLET PO SCH (10:13)
[2023-12-03] MEDS: METOPROLOL TARTRATE 25 MG TAB PO SCH (10:13)
--- NOTE | 2023-12-03 10:59 | P.CRDCN ---
History of Present Illness History of present illness: HISTORY OF PRESENT ILLNESS: This is a 83-year-old female with a past medical history significant for hypertension and hyperlipidemia. 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 We have been asked to see the patient in consultation for new onset atrial fibrillation. Patient examined at the bedside. 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 She states that she fell in the shower. She did not hit her head. She also denies any LOC. She states after she fell, she was so weak that she could not stand up and it took her about 2 hours to be able to stand and get out of the bathroom. She continues to feel weak at the time of examination. She denies any chest pain or pressure. She denies any SOB. Patient was found to be in A-fib with RVR. Patient denies a history of atrial fibrillation. Patient was started on IV heparin and IV Cardizem. She has subsequently converted to sinus mechanism and is maintaining sinus mechanism at the time of examination. DIAGNOSTICS: - EKG reveals A-fib with RVR. Repeat EKG reveals sinus mechanism. - Chest xray negative for acute process - Laboratory data: WBC 7.6. Hemoglobin 12.1. Platelet count 224. Sodium 134. Potassium 3.2. BUN 37. Creatinine 1.33. Troponin 0.122. 0.102. 0.087. proBNP 19,000 - Current home cardiac medications include carvedilol 6.25 mg twice a day, Maxide 75-50 mg daily, Lipitor 40 mg daily, amlodipine 2.5 mg daily REVIEW OF SYSTEMS: At the time of my exam: CONSTITUTIONAL: Denies fever or chills. HEENT: Denies blurred vision, vision changes, or eye pain. Denies hemoptysis CARDIOVASCULAR: Denies chest pain. Denies orthopnea. Denies PND. Denies palpitations RESPIRATORY: Denies shortness of breath. GASTROINTESTINAL: Denies abdominal pain. Denies nausea or vomiting. HEMATOLOGIC: Denies bleeding disorders. GENITOURINARY: Denies any blood in urine. SKIN: Denies pruitis. Denies rash. PHYSICAL EXAM: VITAL SIGNS: Reviewed. GENERAL: Well-developed in no acute distress. HEENT: Head is normocephalic. Pupils are equal, round. Sclerae anicteric. Mucous membranes of the mouth are moist. Neck supple. No JVD or thyromegaly LUNGS: Respirations even and unlabored. Lungs essentially clear to auscultation bilaterally. HEART: Regular rate and rhythm. S1 and S2 heard. ABDOMEN: Soft. Nondistended. Nontender. EXTREMITIES: Normal range of motion. No clubbing or cyanosis. Peripheral pulses intact. No lower extremity edema NEUROLOGIC: Awake and alert. Oriented x 3. ASSESSMENT: Status post mechanical fall New onset atrial fibrillation with RVR Possible mild acute heart failure, type unknown, echo pending, currently euvolemic Abnormal troponins, acute myocardial injury without ischemia secondary to A-fib with RVR Hypertension Hyperlipidemia PLAN: Obtain 2D echo to assess cardiac structure and function Discontinue IV Lasix. Begin oral Lasix 40 mg daily Discontinue IV heparin and IV Cardizem Begin Eliquis 2.5 mg twice a day Begin metoprolol tartrate 25 mg twice a day Continue telemetry monitoring Check TSH Hold home blood pressure medications as blood pressure is on the lower side this morning Further recommendations pending patient course Nurse practitioner note has been reviewed by physician. Signing provider agrees with the documented findings, assessment, and plan of care documented by CASSANDRA ARCHITECT as a scribe. Past Medical History Past Medical History: Asthma, COPD, Hyperlipidemia, Hypertension, Renal Disease Additional Past Medical History / Comment(s): anemia, CKD stage 3, History of Any Multi-Drug Resistant Organisms: None Reported Past Surgical History: Hysterectomy, Joint Replacement Additional Past Surgical History / Comment(s): Bypass on AAA, knee replacement, cataracts Past Psychological History: No Psychological Hx Reported Smoking Status: Current every day smoker, Former smoker Past Alcohol Use History: None Reported Past Drug Use History: None Reported Medications and Allergies Home Medications Medication Instructions Recorded Confirmed Type Atorvastatin [Lipitor] 40 mg PO DAILY 05/06/23 12/03/23 History Cetirizine HCl 10 mg PO DAILY 05/06/23 12/03/23 History Montelukast [Singulair] 10 mg PO DAILY 05/06/23 12/03/23 History Omeprazole 40 mg PO DAILY 05/06/23 12/03/23 History Triamterene-Hctz 75-50Mg [Maxzide 1 tab PO DAILY 05/06/23 12/03/23 History 75-50] amLODIPine [Norvasc] 2.5 mg PO DAILY 05/06/23 12/03/23 History Cyclobenzaprine [Flexeril] 5 mg PO TID 12/03/23 12/03/23 History carvediloL [Coreg] 6.25 mg PO BID 12/03/23 12/03/23 History Allergies Allergy/AdvReac Type Severity Reaction Status Date / Time lisinopril AdvReac Cough Verified 12/03/23 09:19 Physical Exam Vitals: Vital Signs Temp Pulse Pulse Resp BP BP Pulse Ox 12/03/23 09:06 97.4 F L 65 16 113/67 94 L 12/03/23 08:46 64 12/03/23 08:33 64 12/03/23 05:43 138 H 19 12/03/23 03:21 97.6 F 121 H 21 111/64 91 L 12/03/23 02:52 97.8 F 130 H 16 100/86 94 L 12/03/23 02:50 100 22 100/86 97 12/03/23 01:40 102 H 22 115/74 95 12/03/23 01:33 138 H 22 115/70 95 12/03/23 01:00 115 H 22 125/74 95 12/03/23 00:59 132 H 12/03/23 00:53 141 H 12/02/23 23:45 140 H 24 137/80 98 12/02/23 22:45 147 H 24 138/121 94 L 12/02/23 22:30 168 H 24 157/103 85 L 12/02/23 21:58 99.9 F H 184 H 24 149/115 96 Intake and Output 12/02/23 12/03/23 12/03/23 22:59 06:59 14:59 Intake Total 41.167 Output Total 380 Balance -338.833 Intake: Intake, IV Titration 41.167 Amount Diltiazem 125 mg In 41.167 Sodium Chloride 0.9% 100 ml @ 5 MG/HR 5 mls/hr IV .Q24H [facility] Rx#:[id number] Output: Urine 380 Straight 380 Other: Voiding Method External Catheter Weight 58.967 kg 58.967 kg Results 12/02/23 22:06 12/02/23 22:06 Cardiac Enzymes 12/02/23 12/02/23 12/03/23 Range/Units 22:06 22:06 01:22 AST 75 H (14-36) U/L Troponin I 0.122 H* 0.102 H* (0.000-0.034) ng/mL 12/03/23 Range/Units 04:18 AST (14-36) U/L Troponin I 0.087 H* (0.000-0.034) ng/mL Coagulation 12/02/23 Range/Units 22:06 PT 10.4 (10.0-12.5) sec APTT 24.1 (22.0-30.0) sec CBC 12/02/23 Range/Units 22:06 WBC 7.6 (3.8-10.6) k/uL RBC 4.46 (3.80-5.40) m/uL Hgb 12.1 (11.4-16.0) gm/dL Hct 35.9 (34.0-46.0) % Plt Count 224 (150-450) k/uL Comprehensive Metabolic Panel 12/02/23 Range/Units 22:06 Sodium 134 L (137-145) mmol/L Potassium 3.2 L (3.5-5.1) mmol/L Chloride 100 (98-107) mmol/L Carbon Dioxide 22 (22-30) mmol/L BUN 37 H (7-17) mg/dL Creatinine 1.33 H (0.52-1.04) mg/dL Glucose 140 H (74-99) mg/dL Calcium 9.2 (8.4-10.2) mg/dL AST 75 H (14-36) U/L ALT 35 H (4-34) U/L Alkaline Phosphatase 67 (38-126) U/L Total Protein 6.7 (6.3-8.2) g/dL Albumin 4.1 (3.5-5.0) g/dL Current Medications Generic Name Dose Route Start Last Admin Trade Name Freq PRN Reason Stop Dose Admin Albuterol/Ipratropium 3 ml 12/03/23 08:00 12/03/23 08:33 Ipratropium-Albuterol 3 Ml Neb INHALATION 3 ml RT-QID DANILO Administration Budesonide/Formoterol Fumarate 2 puff 12/03/23 08:00 12/03/23 08:33 Symbicort 160-4.5 Mcg Inhaler INHALATION 2 puff RT-BID DANILO Administration Furosemide 40 mg 12/03/23 00:45 12/03/23 09:09 Furosemide 10 Mg/Ml 4 Ml Vial IV 40 mg Q12HR DANILO Administration Heparin Sodium (Porcine) 0 unit 12/03/23 06:10 Heparin Sodium 1,000 Un/Ml (10ml Vl) IV PER PROTOCOL PRN Low PTT Protocol Diltiazem HCl 125 mg/ Sodium 125 mls @ 5 mls/hr 12/02/23 22:15 12/03/23 06:25 Chloride IV 5 mg/hr .Q24H DANILO 5 mls/hr Infusion 5 MG/HR Heparin Sodium/Sodium Chloride 250 mls @ 7.076 mls/hr 12/03/23 06:15 12/03/23 06:18 25,000 unit/ Sodium Chloride IV 12 units/kg/hr .Q24H DAN[facility] 7.076 mls/hr Administration Protocol 12 UNITS/KG/HR Methylprednisolone Sodium Succinate 60 mg 12/03/23 06:00 12/03/23 05:40 Methylprednisolone Sod Succi 125 Mg/2 Ml Vial IV 60 mg Q6HR DANILO Administration Naloxone HCl 0.2 mg 12/03/23 00:37 Naloxone 0.4 Mg/Ml 1 Ml Vial IVP Q2M PRN Opioid Reversal Intake and Output 12/02/23 12/03/23 12/03/23 22:59 06:59 14:59 Intake Total 41.167 Output Total 380 Balance -338.833 Intake: Intake, IV Titration 41.167 Amount Diltiazem 125 mg In 41.167 Sodium Chloride 0.9% 100 ml @ 5 MG/HR 5 mls/hr IV .Q24H [facility] Rx#:[id number] Output: Urine 380 Straight 380 Other: Voiding Method External Catheter Weight 58.967 kg 58.967 kg 12/02/23 22:06 12/02/23 22:06
[2023-12-03] MEDS ORDERED: CYCLOBENZAPRINE 5 MG TAB PO PRN (12:02)
--- NOTE | 2023-12-03 12:08 | P.HPIM ---
History of Present Illness Patient is an 83-year-old female came in with complaints of shortness of breath she fell in the shower found to be in atrial fibrillation with rapid ventricular rate was on Cardizem presently rate controlled Cardizem was switched to me toprolol patient takes Coreg at home. Patient also had COPD exacerbation because of which patient was started on systemic steroids. Patient does not wear any oxygen at home presently on 8 L with 94% saturations chest x-ray did not show any significant abnormality her BNP is elevated to 19,000 although patient clinically is not in heart failure exacerbation. Patient is presently sinus rhythm. Patient is hyponatremic as well secondary to triamterene-hydrochlorothiazide she is taking at home. REVIEW OF SYSTEMS: All other systems are negative except those mentioned in the HPI PHYSICAL EXAMINATION: GENERAL: The patient is alert and oriented x3, not in any acute distress. Well developed, well nourished. HEENT: Pupils are round and equally reacting to light. EOMI. No scleral icterus. No conjunctival pallor. Normocephalic, atraumatic. No pharyngeal erythema. No thyromegaly. CARDIOVASCULAR: S1 and S2 present. No murmurs, rubs, or gallops. PULMONARY: Chest is clear to auscultation, no wheezing or crackles. ABDOMEN: Soft, nontender, nondistended, normoactive bowel sounds. No palpable organomegaly. MUSCULOSKELETAL: No joint swelling or deformity. EXTREMITIES: No cyanosis, clubbing, or pedal edema. NEUROLOGICAL: Gross neurological examination did not reveal any focal deficits. SKIN: No rashes. Assessment and plan -New onset atrial fibrillation with rapid ventricular rate patient is presently sinus rhythm rate controlled patient is on metoprolol which is being continued. No evidence of any infection at this time -Acute hypoxic and hypercapnic respiratory failure: Probably secondary to COPD exacerbation patient does not have much of wheezing at this time we will cut down the steroids to 40 IV twice daily patient is on Eliquis 2.5 mg twice a day -Abnormal troponins secondary to type II myocardial infarction from atrial fibrillation cardiology evaluated the patient patient is on anticoagulation with Eliquis no further intervention is being done at this time -Acute heart failure from atrial fibrillation, patient's systolic function is not known at this time patient was given Lasix with improvement in her volume status patient is presently euvolemic IV Lasix was discontinued patient is on oral Lasix 40 mg daily -Hypertension -Hyperlipidemia DVT prophylaxis: Patient is on Eliquis 2.5 mg twice a day for text Past Medical History Past Medical History: Asthma, COPD, Hyperlipidemia, Hypertension, Renal Disease Additional Past Medical History / Comment(s): anemia, CKD stage 3, History of Any Multi-Drug Resistant Organisms: None Reported Past Surgical History: Hysterectomy, Joint Replacement Additional Past Surgical History / Comment(s): Bypass on AAA, knee replacement, cataracts Past Psychological History: No Psychological Hx Reported Smoking Status: Current every day smoker, Former smoker Past Alcohol Use History: None Reported Past Drug Use History: None Reported Medications and Allergies Home Medications Medication Instructions Recorded Confirmed Type Atorvastatin [Lipitor] 40 mg PO DAILY 05/06/23 12/03/23 History Cetirizine HCl 10 mg PO DAILY 05/06/23 12/03/23 History Montelukast [Singulair] 10 mg PO DAILY 05/06/23 12/03/23 History Omeprazole 40 mg PO DAILY 05/06/23 12/03/23 History Triamterene-Hctz 75-50Mg [Maxzide 1 tab PO DAILY 05/06/23 12/03/23 History 75-50] amLODIPine [Norvasc] 2.5 mg PO DAILY 05/06/23 12/03/23 History Cyclobenzaprine [Flexeril] 5 mg PO TID 12/03/23 12/03/23 History carvediloL [Coreg] 6.25 mg PO BID 12/03/23 12/03/23 History Allergies Allergy/AdvReac Type Severity Reaction Status Date / Time lisinopril AdvReac Cough Verified 12/03/23 09:19 Physical Exam Vitals: Vital Signs Temp Pulse Pulse Resp BP BP Pulse Ox 12/03/23 11:46 64 12/03/23 11:36 60 12/03/23 09:06 97.4 F L 65 16 113/67 94 L 12/03/23 08:46 64 12/03/23 08:33 64 12/03/23 05:43 138 H 19 12/03/23 03:21 97.6 F 121 H 21 111/64 91 L 12/03/23 02:52 97.8 F 130 H 16 100/86 94 L 12/03/23 02:50 100 22 100/86 97 12/03/23 01:40 102 H 22 115/74 95 12/03/23 01:33 138 H 22 115/70 95 12/03/23 01:00 115 H 22 125/74 95 12/03/23 00:59 132 H 12/03/23 00:53 141 H 12/02/23 23:45 140 H 24 137/80 98 12/02/23 22:45 147 H 24 138/121 94 L 12/02/23 22:30 168 H 24 157/103 85 L 12/02/23 21:58 99.9 F H 184 H 24 149/115 96 Intake and Output 12/02/23 12/03/23 12/03/23 22:59 06:59 14:59 Intake Total 41.167 430 Output Total 380 300 Balance -338.833 130 Intake: IV 10 Invasive Line 3 10 Intake, IV Titration 41.167 Amount Diltiazem 125 mg In 41.167 Sodium Chloride 0.9% 100 ml @ 5 MG/HR 5 mls/hr IV .Q24H [facility] Rx#:[id number] Oral 420 Output: Urine 380 300 Straight 380 Other: Voiding Method External Catheter External Catheter # Bowel Movements 0 Weight 58.967 kg 59.6 kg Results CBC & Chem 7: 12/02/23 22:06 12/02/23 22:06 Labs: Abnormal Lab Results - Last 24 Hours (Table) 12/02/23 12/02/23 12/02/23 Range/Units 22:06 22:06 22:06 RDW 15.6 H (11.5-15.5) % Sodium 134 L (137-145) mmol/L Potassium 3.2 L (3.5-5.1) mmol/L BUN 37 H (7-17) mg/dL Creatinine 1.33 H (0.52-1.04) mg/dL Glucose 140 H (74-99) mg/dL AST 75 H (14-36) U/L ALT 35 H (4-34) U/L Troponin I 0.122 H* (0.000-0.034) ng/mL 12/03/23 12/03/23 Range/Units 01:22 04:18 RDW (11.5-15.5) % Sodium (137-145) mmol/L Potassium (3.5-5.1) mmol/L BUN (7-17) mg/dL Creatinine (0.52-1.04) mg/dL Glucose (74-99) mg/dL AST (14-36) U/L ALT (4-34) U/L Troponin I 0.102 H* 0.087 H* (0.000-0.034) ng/mL Thrombosis Risk Factor Assmnt - Choose All That Apply Any of the Below Risk Factors Present?: Yes Each Factor Represents 1 point: Abnormal pulmonary function (COPD) Each Risk Factor Represents 3 Points: Age 75 years or older Other congenital or acquired thrombophilia - If yes, enter type in comment: No Thrombosis Risk Factor Assessment Total Risk Factor Score: 4 Thrombosis Risk Factor Assessment Level: Moderate Risk
[2023-12-03] MEDS ORDERED: QUEtiapine 25 MG TAB PO PRN (12:09)
[2023-12-03] MEDS: PANTOPRAZOLE 40 MG TABLET PO STA (12:17)
[2023-12-03 12:35] LABS: HGB 10.2 gm/dL (11.4-16.0); Hypochromasia Marked; MCH 26.7 pg (25.0-35.0); MCHC 31.8 g/dL (31.0-37.0); MCV 83.9 fL (80.0-100.0); Mean Platelet Volume 8.7; Platelet Count 169 k/uL (150-450); RBC 3.82 m/uL (3.80-5.40); WBC 5.1 k/uL (3.8-10.6)
[2023-12-03 12:49] LABS: African American GFR (CKD) 53 (>60 ml/min/1.73 sqM); Anion Gap 10 mmol/L; Blood Urea Nitrogen 42 mg/dL (7-17); Calcium 8.5 mg/dL (8.4-10.2); Carbon Dioxide 25 mmol/L (22-30); Chloride 101 mmol/L (98-107); Glucose 240 mg/dL (74-99); Non-African American GFR(CKD) 46 (>60 ml/min/1.73 sqM); Potassium 3.7 mmol/L (3.5-5.1); Sodium 136 mmol/L (137-145)
[2023-12-03] MEDS: PANTOPRAZOLE 40 MG TABLET PO SCH (14:17)
[2023-12-03 16:02] VITALS: BMI 24.0
[2023-12-03] MEDS: methylPREDNISolone SOD SUCCI 40 MG/ML 1 ML VIAL IV SCH (20:28)
[2023-12-04 07:31] LABS: HCT 31.2 % (34.0-46.0); HGB 9.9 gm/dL (11.4-16.0); Hypochromasia Slight; MCH 26.2 pg (25.0-35.0); MCHC 31.9 g/dL (31.0-37.0); MCV 81.9 fL (80.0-100.0); Mean Platelet Volume 9.8; Platelet Count 180 k/uL (150-450); RDW 15.7 % (11.5-15.5); WBC 7.9 k/uL (3.8-10.6)
[2023-12-04 07:33] LABS: African American GFR (CKD) 65 (>60 ml/min/1.73 sqM); Anion Gap 6 mmol/L; Blood Urea Nitrogen 45 mg/dL (7-17); Calcium 8.7 mg/dL (8.4-10.2); Carbon Dioxide 25 mmol/L (22-30); Chloride 102 mmol/L (98-107); Glucose 154 mg/dL (74-99); Non-African American GFR(CKD) 56 (>60 ml/min/1.73 sqM); Potassium 3.7 mmol/L (3.5-5.1); Sodium 133 mmol/L (137-145)
[2023-12-04] MEDS: MONTELUKAST 10 MG TAB PO SCH (08:38)
[2023-12-04] MEDS: LORATADINE 10 MG TAB PO SCH (08:38)
[2023-12-04] MEDS: ATORVASTATIN 40 MG TAB PO SCH (08:38)
--- NOTE | 2023-12-04 12:15 | CA ---
Transthoracic Echo Report Name: Rody Paez Age: 83 Gender: F : 1940 Exam Date: 12/04/2023 08:52 Exam Location: [place] [facility] Ht (in): 62 Wt (lb): 130 Ordering Physician: Angela Fontana Attending/Referring Phys: [id number], [employer] Tech Radha Simms RDCS Procedure CPT: Indications: LV function, new onset afib Cardiac Hx: Technical Quality: Good Contrast 1: Total Dose (mL): Contrast 2: Total Dose (mL): MEASUREMENTS (Male / Female) Normal Values 2D ECHO LV Diastolic Diameter PLAX 4.7 cm 4.2 - 5.9 / 3.9 - 5.3 cm LV Systolic Diameter PLAX 3.2 cm IVS Diastolic Thickness 1.1 cm 0.6 - 1.0 / 0.6 - 0.9 cm LVPW Diastolic Thickness 1.0 cm 0.6 - 1.0 / 0.6 - 0.9 cm LV Relative Wall Thickness 0.5 LVOT Diameter 2.2 cm LV Diastolic Volume MOD BP 115.9 cm??? 67 - 155 / 56 - 104 cm??? LV Systolic Volume MOD BP 38.8 cm??? 22 - 58 / 19 - 49 cm??? LV Ejection Fraction MOD BP 66.5 % >= 55 % LV Cardiac Index MOD BP 3628.7 cm???/min???m??? LV Diastolic Volume MOD 4C 128.0 cm??? LV Systolic Volume MOD 4C 40.1 cm??? LV Ejection Fraction MOD 4C 68.7 % LV Cardiac Index MOD 4C 4136.8 cm???/min???m??? LV Diastolic Length 4C 7.3 cm LV Systolic Length 4C 6.0 cm LV Diastolic Volume MOD 2C 104.5 cm??? LV Systolic Volume MOD 2C 36.9 cm??? LV Ejection Fraction MOD 2C 64.8 % LV Cardiac Index MOD 2C 3185.6 cm???/min???m??? LV Diastolic Length 2C 7.3 cm LV Systolic Length 2C 6.1 cm LA Volume 73.5 cm??? 18 - 58 / 22 - 52 cm??? LA Volume Index 45.5 cm???/m??? 16 - 28 cm???/m??? Ascending Aorta Diameter 3.3 cm DOPPLER AV Peak Velocity 170.3 cm/s AV Peak Gradient 11.6 mmHg AV Mean Velocity 122.3 cm/s AV Mean Gradient 6.7 mmHg AV Velocity Time Integral 36.4 cm LVOT Peak Velocity 104.8 cm/s LVOT Peak Gradient 4.4 mmHg LVOT Velocity Time Integral 21.3 cm LVOT Stroke Volume 78.3 cm??? LVOT Stroke Volume Index 49.2 ml/m??? LVOT Cardiac Index 3684.2 cm???/min???m??? AV Area Cont Eq vti 2.2 cm??? AV Area Cont Eq pk 2.3 cm??? MV Area PHT 3.7 cm??? Mitral E Point Velocity 81.3 cm/s Mitral A Point Velocity 58.6 cm/s Mitral E to A Ratio 1.4 MV Deceleration Time 202.5 ms TR Peak Velocity 302.7 cm/s TR Peak Gradient 36.6 mmHg Right Atrial Pressure 5.0 mmHg Pulmonary Artery Systolic Pressu 41.6 mmHg Right Ventricular Systolic Press 41.6 mmHg PV Peak Velocity 96.5 cm/s PV Peak Gradient 3.7 mmHg FINDINGS Left Ventricle Left ventricular ejection fraction is estimated at 60-65 %. Mildly increased septal wall thickness. Mildly increased left ventricular diastolic volume. No obvious regional wall motion abnormalities. Right Ventricle Normal right ventricular size and function. Mildly elevated right ventricular systolic pressure. Right Atrium Normal right atrial size. Left Atrium Severely increased left atrial volume. Mildly increased left atrial area. Mitral Valve Structurally normal mitral valve. No evidence for mitral valve prolapse. No mitral stenosis. Mild mitral regurgitation. Aortic Valve Trileaflet aortic valve. No aortic valve stenosis or regurgitation. Tricuspid Valve Structurally normal tricuspid valve. No tricuspid stenosis. Mild tricuspid regurgitation. Pulmonic Valve Structurally normal pulmonic valve. No pulmonic stenosis. Trace pulmonic regurgitation. Pericardium No pericardial effusion. Aorta Normal size aortic root and proximal ascending aorta. CONCLUSIONS Normal LV function Mild mitral regurgitation Mild tricuspid regurgitation Previewed by: Dr. Koko Carvalho MD (Electronically Signed) Final Date: 04 December 2023 12:14
--- NOTE | 2023-12-04 12:37 | P.PN ---
Subjective HISTORY OF PRESENT ILLNESS: This is a 83-year-old female with a past medical history significant for hypertension and hyperlipidemia. 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 We have been asked to see the patient in consultation for new onset atrial fibrillation. Patient examined at the bedside. Patient states she was getting ready for [employer] on Friday and was taking a shower. She states that she fell in the shower. She did not hit her head. She also denies any LOC. She states after she fell, she was so weak that she could not stand up and it took her about 2 hours to be able to stand and get out of the bathroom. She continues to feel weak at the time of examination. She denies any chest pain or pressure. She denies any SOB. Patient was found to be in A-fib with RVR. Patient denies a history of atrial fibrillation. Patient was started on IV heparin and IV Cardizem. She has subsequently converted to sinus mechanism and is maintaining sinus mechanism at the time of examination. DIAGNOSTICS: - EKG reveals A-fib with RVR. Repeat EKG reveals sinus mechanism. - Chest xray negative for acute process - Laboratory data: WBC 7.6. Hemoglobin 12.1. Platelet count 224. Sodium 134. Potassium 3.2. BUN 37. Creatinine 1.33. Troponin 0.122. 0.102. 0.087. proBNP 19,000 - Current home cardiac medications include carvedilol 6.25 mg twice a day, Maxide 75-50 mg daily, Lipitor 40 mg daily, amlodipine 2.5 mg daily 12/04/2023 Patient examined this morning the bedside. Patient currently denies chest pain or pressure. She reports mild shortness of breath. She is maintaining sinus mechanism at the time of examination. Echocardiogram completed revealing ejection fraction 60 to 65%, mild TR, mild MR. PHYSICAL EXAM: VITAL SIGNS: Reviewed. GENERAL: Well-developed in no acute distress. HEENT: Head is normocephalic. Pupils are equal, round. Sclerae anicteric. Mucous membranes of the mouth are moist. Neck supple. No JVD or thyromegaly LUNGS: Respirations even and unlabored. Lungs essentially clear to auscultation bilaterally. HEART: Regular rate and rhythm. S1 and S2 heard. ABDOMEN: Soft. Nondistended. Nontender. EXTREMITIES: Normal range of motion. No clubbing or cyanosis. Peripheral pulses intact. No lower extremity edema NEUROLOGIC: Awake and alert. Oriented x 3. ASSESSMENT: Status post mechanical fall New onset atrial fibrillation with RVR, paroxysmal, maintaining sinus mechanism Possible mild acute heart failure with preserved EF, 60 to 65%, currently euvolemic Abnormal troponins, acute myocardial injury without ischemia secondary to A-fib with RVR Hypertension Hyperlipidemia PLAN: Continue current cardiac medications Patient is currently stable for discharge home today from a cardiac standpoint She is to follow-up outpatient with Dr. Ponce Will plan for outpatient stress testing Further recommendations pending patient course Nurse practitioner note has been reviewed by physician. Signing provider agrees with the documented findings, assessment, and plan of care documented by CIRCUITS ENGINEER as a scribe. Objective - Vital Signs Vital signs: Vital Signs Temp 97.8 F 12/04/23 08:37 Pulse 68 12/04/23 11:16 Resp 18 12/04/23 08:37 BP 117/59 12/04/23 08:37 Pulse Ox 92 L 12/04/23 08:37 FiO2 Intake & Output 12/03/23 12/04/23 12/04/23 18:59 06:59 18:59 Intake Total 570 40 140 Output Total 300 901 Balance 270 -861 140 Weight 59.6 kg 59.9 kg Intake: IV 30 40 20 Invasive Line 2 10 20 10 Invasive Line 3 20 20 10 Oral 540 120 Output: Urine 300 900 Stool 1 Other: Voiding Method Bedside Commode Bedside Commode Bedside Commode # Bowel Movements 0 0 - Labs CBC & Chem 7: 12/04/23 05:34 12/04/23 05:34 Labs: Abnormal Lab Results - Last 24 Hours (Table) 12/03/23 12/03/23 12/04/23 Range/Units 12:22 12:22 05:34 Hgb 10.2 L 9.9 L (11.4-16.0) gm/dL Hct 32.0 L 31.2 L (34.0-46.0) % RDW 16.0 H 15.7 H (11.5-15.5) % Sodium 136 L (137-145) mmol/L BUN 42 H (7-17) mg/dL Creatinine 1.11 H (0.52-1.04) mg/dL Glucose 240 H (74-99) mg/dL 12/04/23 Range/Units 05:34 Hgb (11.4-16.0) gm/dL Hct (34.0-46.0) % RDW (11.5-15.5) % Sodium 133 L (137-145) mmol/L BUN 45 H (7-17) mg/dL Creatinine (0.52-1.04) mg/dL Glucose 154 H (74-99) mg/dL
--- NOTE | 2023-12-04 13:14 | P.PN ---
Subjective Progress Note Date: 12/04/23 Principal diagnosis: Shortness of breath. Patient is an 83-year-old white female with past medical history significant for COPD, former tobacco smoker, hyperlipidemia, hypertension, AAA, chronic kidney disease. Her PCP is Dr. Kong. She presents to the emergency department late last night with a chief complaint of acute onset shortness of breath. She does have history of COPD. She Reportedly quit smoking approximately 1 year ago. Before this she was a one half to 1 pack/day smoker. While being evaluated in the emergency department, she was being found to be in new onset atrial fibrillation with rapid ventricular response with a rate of 175 bpm. She denies any history of atrial fibrillation or irregular heartbeat. 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 She was started on Cardizem infusion in the emergency department which is currently infusing at 5 mg/h. Heparin infusion also added by cardiology per protocol. On my evaluation, she is on a 15 L nonrebreather, oxygen saturation is 94%. Family is at bedside. She just got up to the bedside commode. In no acute respiratory distress at the moment. No accessory muscle use, conversational dyspnea. She denies any chest pain, heart palpitations, lightheadedness, syncopal events. She did fall while in the shower approximately 1 week ago. Denies hitting her head. Not on any blood thinners/anticoagulation. She states that her legs just gave out. Chest x-ray does not show any focal consolidation or no evidence of pneumonia. Cardiac silhouette appears stable without any vascular congestion or corina pulmonary edema. No pleural effusions or pneumothoraces. CBC on arrival unremarkable. No leukocytosis. CMP: Sodium 134, potassium 3.2, chloride 100, serum bicarb 22, BUN 37, creatinine 1.33, glucose 140. Lactic acid 1.8. Normal saline infusing at 130 ml/hr. LFTs mildly elevated. Troponins 0.122, 0.102, and 0.087 respectively. NT proBNP 19,000. During my evaluation, patient appears to have converted to normal sinus rhythm. Remaining vital signs are stable. Progress note dated December 04, 2023. 83-year-old female seen in consultation 1 day ago. The patient has a history of COPD, from more than 60 years of tobacco use, hyperlipidemia, hypertension, chronic kidney disease, among other things. The patient presented to the emergency department, with shortness of breath. She apparently was sent in by her primary care provider. She was found to have atrial fibrillation with RVR, and her chest x-ray was consistent with mild fluid overload, as well as an elevated N-terminal proBNP, which was 19,000. The patient was placed on a Cardizem drip, and she was seen in consultation. Currently, she is doing relatively well. She is on 8 L high flow nasal cannula. She is not receiving any IV fluids. Likely her hypoxemia as a result of both CHF, and COPD exacerbations. Clinically, she looks well, she feels well. She quit smoking at the beginning of this year. Current labs include a white count 7.9, hemoglobin 9.9, hematocrit 31.2, and a platelet count of 180,000. Sodium 133, potassium 3.7, chlorides 102, CO2 25, BUN 45, and creatinine 0.94. Glucose is 154. Objective - Vital Signs Vital signs: Vital Signs Temp 97.8 F 12/04/23 08:37 Pulse 72 12/04/23 12:31 Resp 18 12/04/23 12:32 BP 112/53 12/04/23 12:31 Pulse Ox 92 L 12/04/23 12:32 FiO2 Intake & Output 12/03/23 12/04/23 12/04/23 18:59 06:59 18:59 Intake Total 570 40 140 Output Total 300 901 Balance 270 -861 140 Weight 59.6 kg 59.9 kg Intake: IV 30 40 20 Invasive Line 2 10 20 10 Invasive Line 3 20 20 10 Oral 540 120 Output: Urine 300 900 Stool 1 Other: Voiding Method Bedside Commode Bedside Commode Bedside Commode # Bowel Movements 0 0 - Exam No acute distress, oriented 3. Currently on 8 L nasal cannula. No respiratory distress. Mild conversational dyspnea. HEENT examination is grossly unremarkable. Mucous membranes are moist. No oral lesions. Neck supple. Full range of motion. No adenopathy thyromegaly or neck vein distention. Cardiovascular examination reveals regular rhythm rate. S1-S2 normal. No S3 or S4. No discernible murmur noted. Heart rate 72 bpm. Lungs reveal minimal basilar crackles. Scattered rhonchi. No wheezes. Breath sounds equal. I Abdomen soft bowel sounds are heard. No masses or tenderness. Extremities are intact. No cyanosis clubbing or edema. Skin is without rash or lesion. Neurologic examination is brief but nonfocal. - Labs CBC & Chem 7: 12/04/23 05:34 12/04/23 05:34 Labs: Abnormal Lab Results - Last 24 Hours (Table) 12/04/23 12/04/23 Range/Units 05:34 05:34 Hgb 9.9 L (11.4-16.0) gm/dL Hct 31.2 L (34.0-46.0) % RDW 15.7 H (11.5-15.5) % Sodium 133 L (137-145) mmol/L BUN 45 H (7-17) mg/dL Glucose 154 H (74-99) mg/dL Assessment and Plan Assessment: New onset atrial fibrillation with rapid ventricular response. Possible acute COPD exacerbation. Acute hypoxemic respiratory failure, secondary to above. Elevated troponins, likely secondary to supply/demand mismatch. Acute on chronic kidney disease. History of hypertension. History of hyperlipidemia. History of abdominal aortic aneurysm. Former tobacco dependence. Plan: Plan dated November in the 2023. The patient was seen in room 365. The patient is currently doing relatively well. She was sitting on top of the bed. A family member was in the room with her. She is currently on 8 L nasal cannula. She is not receiving any IV fluids. Likely her shortness of breath with a combination of atrial fibrillation with RVR and CHF, as well as COPD exacerbation. Labs, x-rays, medications are reviewed. We will continue to follow make recommendations along the way. Prognosis is guarded. Time with Patient: Less than 30
--- NOTE | 2023-12-04 21:54 | PN ---
PROGRESS NOTE DATE OF SERVICE: 12/04/2023 SUBJECTIVE: This is an 83-year-old woman, who was admitted with mechanical fall, also had new-onset atrial fibrillation. The patient also had mild CHF with possible diastolic dysfunction. Troponins are mildly elevated. Cardiology recommended to continue the current medications at this time. PAST MEDICAL HISTORY: Reviewed. REVIEW OF SYSTEMS: A 14-point review is negative except as mentioned earlier. CURRENT MEDICATIONS: Reviewed include Symbicort. Dose and rest of medications noted. PHYSICAL EXAMINATION: VITAL SIGNS: Pulse is 72, blood pressure 112/53, respirations 18. HEENT: Conjunctivae normal. NECK: No JVD. CARDIOVASCULAR: S1, S2. RESPIRATIONS: Breath sounds diminished at the bases. No rhonchi. No crackles. ABDOMEN: Soft, nontender. LEGS: No edema. NERVOUS SYSTEM: Nonfocal. LABORATORY DATA: Sodium 130. Rest of the labs are noted. ASSESSMENT: 1. New onset atrial fibrillation. 2. Acute hypoxic respiratory failure possibly secondary to chronic obstructive pulmonary disease acute exacerbation. 3. Possible mild congestive heart failure with acute diastolic dysfunction. 4. Abnormal troponin secondary to type 2 myocardial infarction from atrial fibrillation. 5. Fall and multiple complex medical issues. 6. Troponin up to 0.122. RECOMMENDATIONS AND DISCUSSION: This is an 83-year-old woman presented with multiple complex medical issues, we will monitor the patient closely. Continue the current management and continue symptomatic treatment. Otherwise, we will continue with bronchodilators. Eliquis has been initiated at low dose and repeat labs. PT/OT evaluation. Closely follow with Cardiology and Pulmonology. Prognosis guarded because of multiple complex medical issues. Further recommendations to follow. Discussed with the family. MMODL / IJN: [id number] /
[2023-12-05] MEDS: FUROSEMIDE 10 MG/ML 2 ML VIAL IV STA (09:11)
[2023-12-05] MEDS: TRIAMTERENE-HCTZ 75-50MG 1 EACH TAB PO SCH (09:18)
--- NOTE | 2023-12-05 09:39 | XR ---
EXAMINATION TYPE: XR chest 2V DATE OF EXAM: 12/05/2023 COMPARISON: 12/02/2023 HISTORY: Shortness of breath TECHNIQUE: Frontal and lateral views of the chest are obtained. FINDINGS: Scattered senescent parenchymal changes noted. Hyperinflation compatible with COPD. Left lower lobe patchy infiltrate with small effusion. Heart size is stable. Mediastinal structures are stable and grossly unremarkable. No evidence for hilar prominence. Degenerative changes dorsal spine. IMPRESSION: 1. Left lower lobe patchy infiltrate with small effusion.
--- NOTE | 2023-12-05 11:08 | P.PN ---
Subjective HISTORY OF PRESENT ILLNESS: This is a 83-year-old female with a past medical history significant for hypertension and hyperlipidemia. 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 We have been asked to see the patient in consultation for new onset atrial fibrillation. Patient examined at the bedside. 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 She states that she fell in the shower. She did not hit her head. She also denies any LOC. She states after she fell, she was so weak that she could not stand up and it took her about 2 hours to be able to stand and get out of the bathroom. She continues to feel weak at the time of examination. She denies any chest pain or pressure. She denies any SOB. Patient was found to be in A-fib with RVR. Patient denies a history of atrial fibrillation. Patient was started on IV heparin and IV Cardizem. She has subsequently converted to sinus mechanism and is maintaining sinus mechanism at the time of examination. DIAGNOSTICS: - EKG reveals A-fib with RVR. Repeat EKG reveals sinus mechanism. - Chest xray negative for acute process - Laboratory data: WBC 7.6. Hemoglobin 12.1. Platelet count 224. Sodium 134. Potassium 3.2. BUN 37. Creatinine 1.33. Troponin 0.122. 0.102. 0.087. proBNP 19,000 - Current home cardiac medications include carvedilol 6.25 mg twice a day, Maxide 75-50 mg daily, Lipitor 40 mg daily, amlodipine 2.5 mg daily 12/04/2023 Patient examined this morning the bedside. Patient currently denies chest pain or pressure. She reports mild shortness of breath. She is maintaining sinus mechanism at the time of examination. Echocardiogram completed revealing ejection fraction 60 to 65%, mild TR, mild MR. 12/05/2023 Patient examined this morning at bedside. Patient currently denies any chest pain or pressure. She denies any shortness of breath. She remains in sinus mechanism. Chest x-ray this morning reveals left lower patchy infiltrate with small effusion patient remains on nasal cannula at 8 L. PHYSICAL EXAM: VITAL SIGNS: Reviewed. GENERAL: Well-developed in no acute distress. HEENT: Head is normocephalic. Pupils are equal, round. Sclerae anicteric. Mucous membranes of the mouth are moist. Neck supple. No JVD or thyromegaly LUNGS: Respirations even and unlabored. Lungs essentially clear to auscultation bilaterally. HEART: Regular rate and rhythm. S1 and S2 heard. ABDOMEN: Soft. Nondistended. Nontender. EXTREMITIES: Normal range of motion. No clubbing or cyanosis. Peripheral pulses intact. No lower extremity edema NEUROLOGIC: Awake and alert. Oriented x 3. ASSESSMENT: Status post mechanical fall New onset atrial fibrillation with RVR, paroxysmal, maintaining sinus mechanism Possible mild acute heart failure with preserved EF, 60 to 65%, currently euvolemic Acute hypoxic respiratory failure requiring supplemental oxygen Abnormal troponins, acute myocardial injury without ischemia secondary to A-fib with RVR Hypertension Hyperlipidemia PLAN: Continue current cardiac medications Give patient a one-time dose of IV Lasix this morning Wean oxygen as tolerated Patient is currently stable for discharge home today from a cardiac standpoint She is to follow-up outpatient with Dr. Ponce Will plan for outpatient stress testing Further recommendations pending patient course Nurse practitioner note has been reviewed by physician. Signing provider agrees with the documented findings, assessment, and plan of care documented by WEATHERIZATION SPECIALIST as a scribe. Objective - Vital Signs Vital signs: Vital Signs Temp 97.7 F 12/05/23 08:10 Pulse 75 12/05/23 08:31 Resp 19 12/05/23 08:10 BP 124/67 12/05/23 08:10 Pulse Ox 94 L 12/05/23 08:18 FiO2 Intake & Output 12/04/23 12/05/23 12/05/23 18:59 06:59 18:59 Intake Total 510 560 790 Output Total 700 400 Balance -190 160 790 Weight 59.5 kg Intake: IV 30 20 10 Invasive Line 2 20 20 10 Invasive Line 3 10 Oral 480 540 780 Output: Urine 700 400 Other: Voiding Method Bedside Commode Bedside Commode - Labs CBC & Chem 7: 12/04/23 05:34 12/04/23 05:34
--- NOTE | 2023-12-05 11:55 | P.PN ---
Subjective Progress Note Date: 12/05/23 Principal diagnosis: Shortness of breath. Patient is an 83-year-old white female with past medical history significant for COPD, former tobacco smoker, hyperlipidemia, hypertension, AAA, chronic kidney disease. Her PCP is Dr. Kong. She presents to the emergency department late last night with a chief complaint of acute onset shortness of breath. She does have history of COPD. She Reportedly quit smoking approximately 1 year ago. Before this she was a one half to 1 pack/day smoker. While being evaluated in the emergency department, she was being found to be in new onset atrial fibrillation with rapid ventricular response with a rate of 175 bpm. She denies any history of atrial fibrillation or irregular heartbeat. 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 She was started on Cardizem infusion in the emergency department which is currently infusing at 5 mg/h. Heparin infusion also added by cardiology per protocol. On my evaluation, she is on a 15 L nonrebreather, oxygen saturation is 94%. Family is at bedside. She just got up to the bedside commode. In no acute respiratory distress at the moment. No accessory muscle use, conversational dyspnea. She denies any chest pain, heart palpitations, lightheadedness, syncopal events. She did fall while in the shower approximately 1 week ago. Denies hitting her head. Not on any blood thinners/anticoagulation. She states that her legs just gave out. Chest x-ray does not show any focal consolidation or no evidence of pneumonia. Cardiac silhouette appears stable without any vascular congestion or corina pulmonary edema. No pleural effusions or pneumothoraces. CBC on arrival unremarkable. No leukocytosis. CMP: Sodium 134, potassium 3.2, chloride 100, serum bicarb 22, BUN 37, creatinine 1.33, glucose 140. Lactic acid 1.8. Normal saline infusing at 130 ml/hr. LFTs mildly elevated. Troponins 0.122, 0.102, and 0.087 respectively. NT proBNP 19,000. During my evaluation, patient appears to have converted to normal sinus rhythm. Remaining vital signs are stable. Progress note dated December 04, 2023. 83-year-old female seen in consultation 1 day ago. The patient has a history of COPD, from more than 60 years of tobacco use, hyperlipidemia, hypertension, chronic kidney disease, among other things. The patient presented to the emergency department, with shortness of breath. She apparently was sent in by her primary care provider. She was found to have atrial fibrillation with RVR, and her chest x-ray was consistent with mild fluid overload, as well as an elevated N-terminal proBNP, which was 19,000. The patient was placed on a Cardizem drip, and she was seen in consultation. Currently, she is doing relatively well. She is on 8 L high flow nasal cannula. She is not receiving any IV fluids. Likely her hypoxemia as a result of both CHF, and COPD exacerbations. Clinically, she looks well, she feels well. She quit smoking at the beginning of this year. Current labs include a white count 7.9, hemoglobin 9.9, hematocrit 31.2, and a platelet count of 180,000. Sodium 133, potassium 3.7, chlorides 102, CO2 25, BUN 45, and creatinine 0.94. Glucose is 154. Progress note dated December 05, 2023. The patient is seen today in room 365. The patient remains on oxygen by nasal cannula at 6 L. Saturations are 94%. She is not receiving any IV fluids. Organ to increase her Solu-Medrol up to 60 mg every 6 hours, and check a procalcitonin level. In addition, her Symbicort will be discontinued, in favor of formoterol 20 mcg, mixed with budesonide 1 mg, twice a day. No new labs today. Labs from December 03 have been reviewed. Chest x-ray shows a patchy left lower lobe infiltrate. Objective - Vital Signs Vital signs: Vital Signs Temp 97.7 F 12/05/23 08:10 Pulse 75 12/05/23 08:31 Resp 19 12/05/23 08:10 BP 124/67 12/05/23 08:10 Pulse Ox 94 L 12/05/23 08:18 FiO2 Intake & Output 12/04/23 12/05/23 12/05/23 18:59 06:59 18:59 Intake Total 510 560 790 Output Total 700 400 Balance -190 160 790 Weight 59.5 kg Intake: IV 30 20 10 Invasive Line 2 20 20 10 Invasive Line 3 10 Oral 480 540 780 Output: Urine 700 400 Other: Voiding Method Bedside Commode Bedside Commode # Voids 2 # Bowel Movements 0 - Exam No acute distress, oriented 3. Currently on 6 L nasal cannula. No respiratory distress. Mild conversational dyspnea. HEENT examination is grossly unremarkable. Mucous membranes are moist. No oral lesions. Neck supple. Full range of motion. No adenopathy thyromegaly or neck vein distention. Cardiovascular examination reveals regular rhythm rate. S1-S2 normal. No S3 or S4. No discernible murmur noted. Heart rate 87 bpm. Lungs reveal minimal basilar crackles. Scattered rhonchi. No wheezes. Breath sounds are equal. Abdomen soft bowel sounds are heard. No masses or tenderness. Extremities are intact. No cyanosis clubbing or edema. Skin is without rash or lesion. Neurologic examination is brief but nonfocal. - Labs CBC & Chem 7: 12/04/23 05:34 12/04/23 05:34 Assessment and Plan Assessment: New onset atrial fibrillation with rapid ventricular response. Possible acute COPD exacerbation, with possible left lower lobe pneumonia. Acute congestive heart failure, secondary to atrial fibrillation/RVR. Acute hypoxemic respiratory failure, secondary to above. Elevated troponins, likely secondary to supply/demand mismatch. Acute on chronic kidney disease. History of hypertension. History of hyperlipidemia. History of abdominal aortic aneurysm. Former tobacco dependence. Plan: Plan dated December 04 2023. The patient was seen in room 365. The patient is currently doing relatively well. She was sitting on top of the bed. A family member was in the room with her. She is currently on 8 L nasal cannula. She is not receiving any IV fluids. Likely her shortness of breath with a combination of atrial fibrillation with RVR and CHF, as well as COPD exacerbation. Labs, x-rays, medications are reviewed. We will continue to follow make recommendations along the way. Prognosis is guarded. Plan dated December 05, 2023. The patient's Solu-Medrol was increased to 60 mg every 6 hours. Symbicort was discontinued in favor of budesonide 1 mg, mixed with formoterol 20 mcg, twice a day. We will check a procalcitonin level. The patient's chest x-ray showed a patchy infiltrate left lower lobe. This may represent pneumonia. The patient may benefit from antibiotics, should her procalcitonin level be elevated. In addition, the patient does have a component of fluid overload/CHF, secondary to atrial fibrillation/RVR. We will continue to follow. The patient appears stable. Her oxygen requirements have actually come down. Time with Patient: Less than 30
[2023-12-05] MEDS: methylPREDNISolone SOD SUCCI 125 MG/2 ML VIAL IV SCH (12:24)
--- NOTE | 2023-12-05 14:27 | PN ---
PROGRESS NOTE DATE OF SERVICE: 12/05/2023 SUBJECTIVE: This is an 83-year-old woman, who was admitted with new onset atrial fibrillation. The patient also had severe COPD also. Multiple consultants are following the patient. No chest pain. No palpitation. OBJECTIVE: VITAL SIGNS: Pulse is 75, blood pressure 120/62, respirations 19. HEENT: Conjunctivae normal. CARDIOVASCULAR: S1, S2. RESPIRATIONS: Bilateral scattered rhonchi. ABDOMEN: Soft. NERVOUS SYSTEM: Nonfocal. LABORATORY DATA: Troponin 0.087. ASSESSMENT: 1. New-onset atrial fibrillation with fast ventricular rate. 2. Acute hypoxic respiratory failure possibly secondary to chronic obstructive pulmonary disease acute exacerbation. 3. Troponin elevated up to 0.122. 4. Mild congestive heart failure with acute diastolic dysfunction. 5. Abnormal troponins secondary to type 2 myocardial infarction, and atrial fibrillation. 6. Fall and multiple complex medical issues. RECOMMENDATIONS AND DISCUSSION: I recommend to continue current management. Continue symptomatic treatment. Continue with bronchodilators. Follow closely with Cardiology, Pulmonology. Recommend repeat labs. Further recommendations to follow. MMODL / IJN: [id number] /
[2023-12-05] MEDS: BUDESONIDE 1 MG/2 ML NEBU INHALATION SCH (21:14)
[2023-12-05] MEDS: FORMOTEROL FUMARATE 20 MCG/2 ML NEBU INHALATION SCH (21:14)
[2023-12-06 06:23] LABS: Basophils % (A) 0 %; Eosinophils % (A) 0 %; HCT 33.9 % (34.0-46.0); HGB 10.9 gm/dL (11.4-16.0); Hypochromasia Slight; Lymphocytes # (A) 0.6 k/uL (1.0-4.8); Lymphocytes % (A) 8 %; MCH 26.1 pg (25.0-35.0); MCHC 32.1 g/dL (31.0-37.0); MCV 81.3 fL (80.0-100.0); Mean Platelet Volume 7.7; Monocytes # (A) 0.3 k/uL (0-1.0); Monocytes % (A) 5 %; Neutrophils # (A) 6.1 k/uL (1.3-7.7); Neutrophils % (A) 86 %; Platelet Count 276 k/uL (150-450); RBC 4.17 m/uL (3.80-5.40); RDW 15.4 % (11.5-15.5); WBC 7.1 k/uL (3.8-10.6)
[2023-12-06 06:40] LABS: African American GFR (CKD) 51 (>60 ml/min/1.73 sqM); Anion Gap 9 mmol/L; Blood Urea Nitrogen 36 mg/dL (7-17); Calcium 9.3 mg/dL (8.4-10.2); Carbon Dioxide 28 mmol/L (22-30); Chloride 96 mmol/L (98-107); Glucose 152 mg/dL (74-99); Non-African American GFR(CKD) 44 (>60 ml/min/1.73 sqM); Potassium 3.9 mmol/L (3.5-5.1); Sodium 133 mmol/L (137-145)
[2023-12-06] MEDS: AMOXIC-POT CLAV 875-125MG 1 EACH TAB PO SCH (09:02)
--- NOTE | 2023-12-06 09:39 | P.PN ---
Subjective Progress Note Date: 12/06/23 The patient is a pleasant 83-year-old female patient who was admitted to the hospital with acute hypoxic respiratory failure as well as heart failure with preserved ejection fraction paroxysmal atrial fibrillation after she had a fall at home. She underwent further evaluation including echo showed preserved LV systolic function. December 06, 2023 The patient was seen and evaluated this morning. She is feeling better. The shortness of breath has improved which she was diagnosed with COPD and currently she is on oxygen which has been coming down with this. No symptoms of chest pain or chest discomfort. She has been maintaining normal sinus mechanism. She is on oral anticoagulation. Examination is remarkable for regular rhythm with a soft systolic murmur and clear breathing sounds bilaterally and no edema was noted Assessment Hypoxic respiratory failure COPD Heart failure with preserved ejection fraction Paroxysmal atrial fibrillation Evidence of myocardial injury Plan Continue the current medical regimen Try to wean the patient from oxygen Possible discharge in next 12 to 24 hours Follow-up with the patient Objective - Vital Signs Vital signs: Vital Signs Temp 97.5 F L 12/06/23 08:56 Pulse 79 12/06/23 08:56 Resp 20 12/06/23 08:56 BP 151/72 12/06/23 08:56 Pulse Ox 96 12/06/23 08:56 FiO2 Intake & Output 12/05/23 12/06/23 12/06/23 18:59 06:59 18:59 Intake Total 1400 260 120 Output Total 2 Balance 1398 260 120 Weight 59.1 kg Intake: IV 20 20 Invasive Line 2 20 20 Oral 1380 240 120 Output: Stool 2 Other: Voiding Method Bedside Commode Bedside Commode # Voids 2 # Bowel Movements 0 - Labs CBC & Chem 7: 12/06/23 05:42 12/06/23 05:42 Labs: Abnormal Lab Results - Last 24 Hours (Table) 12/06/23 12/06/23 Range/Units 05:42 05:42 Hgb 10.9 L (11.4-16.0) gm/dL Hct 33.9 L (34.0-46.0) % Lymphocytes # 0.6 L (1.0-4.8) k/uL Sodium 133 L (137-145) mmol/L Chloride 96 L (98-107) mmol/L BUN 36 H (7-17) mg/dL Creatinine 1.16 H (0.52-1.04) mg/dL Glucose 152 H (74-99) mg/dL
--- NOTE | 2023-12-06 10:48 | P.PN ---
Subjective Progress Note Date: 12/06/23 Principal diagnosis: Shortness of breath. Patient is an 83-year-old white female with past medical history significant for COPD, former tobacco smoker, hyperlipidemia, hypertension, AAA, chronic kidney disease. Her PCP is Dr. Kong. She presents to the emergency department late last night with a chief complaint of acute onset shortness of breath. She does have history of COPD. She Reportedly quit smoking approximately 1 year ago. Before this she was a one half to 1 pack/day smoker. While being evaluated in the emergency department, she was being found to be in new onset atrial fibrillation with rapid ventricular response with a rate of 175 bpm. She denies any history of atrial fibrillation or irregular heartbeat. 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 She was started on Cardizem infusion in the emergency department which is currently infusing at 5 mg/h. Heparin infusion also added by cardiology per protocol. On my evaluation, she is on a 15 L nonrebreather, oxygen saturation is 94%. Family is at bedside. She just got up to the bedside commode. In no acute respiratory distress at the moment. No accessory muscle use, conversational dyspnea. She denies any chest pain, heart palpitations, lightheadedness, syncopal events. She did fall while in the shower approximately 1 week ago. Denies hitting her head. Not on any blood thinners/anticoagulation. She states that her legs just gave out. Chest x-ray does not show any focal consolidation or no evidence of pneumonia. Cardiac silhouette appears stable without any vascular congestion or corina pulmonary edema. No pleural effusions or pneumothoraces. CBC on arrival unremarkable. No leukocytosis. CMP: Sodium 134, potassium 3.2, chloride 100, serum bicarb 22, BUN 37, creatinine 1.33, glucose 140. Lactic acid 1.8. Normal saline infusing at 130 ml/hr. LFTs mildly elevated. Troponins 0.122, 0.102, and 0.087 respectively. NT proBNP 19,000. During my evaluation, patient appears to have converted to normal sinus rhythm. Remaining vital signs are stable. Progress note dated December 04, 2023. 83-year-old female seen in consultation 1 day ago. The patient has a history of COPD, from more than 60 years of tobacco use, hyperlipidemia, hypertension, chronic kidney disease, among other things. The patient presented to the emergency department, with shortness of breath. She apparently was sent in by her primary care provider. She was found to have atrial fibrillation with RVR, and her chest x-ray was consistent with mild fluid overload, as well as an elevated N-terminal proBNP, which was 19,000. The patient was placed on a Cardizem drip, and she was seen in consultation. Currently, she is doing relatively well. She is on 8 L high flow nasal cannula. She is not receiving any IV fluids. Likely her hypoxemia as a result of both CHF, and COPD exacerbations. Clinically, she looks well, she feels well. She quit smoking at the beginning of this year. Current labs include a white count 7.9, hemoglobin 9.9, hematocrit 31.2, and a platelet count of 180,000. Sodium 133, potassium 3.7, chlorides 102, CO2 25, BUN 45, and creatinine 0.94. Glucose is 154. Progress note dated December 05, 2023. The patient is seen today in room 365. The patient remains on oxygen by nasal cannula at 6 L. Saturations are 94%. She is not receiving any IV fluids. Organ to increase her Solu-Medrol up to 60 mg every 6 hours, and check a procalcitonin level. In addition, her Symbicort will be discontinued, in favor of formoterol 20 mcg, mixed with budesonide 1 mg, twice a day. No new labs today. Labs from December 03 have been reviewed. Chest x-ray shows a patchy left lower lobe infiltrate. Progress note dated December 06, 2023. The patient is seen today in room 365. Currently, the patient is on 4 L nasal cannula. Her breathing is improved. The patient is currently on Augmentin. Procalcitonin level was 0.34. The patient is not receiving any IV fluids. White count 7.1, hemoglobin 10.9, hematocrit 33.9, platelet count 276,000. Sodium 133, potassium 3.9, chlorides 96, CO2 28, BUN 36, and creatinine 1.16. Glucose 152. N-terminal proBNP was 3500. Procalcitonin level was 0.34. Chest x-ray from yesterday shows patchy airspace disease, left lower lobe. Objective - Vital Signs Vital signs: Vital Signs Temp 97.5 F L 12/06/23 08:56 Pulse 79 12/06/23 08:56 Resp 20 12/06/23 08:56 BP 151/72 12/06/23 08:56 Pulse Ox 96 12/06/23 08:56 FiO2 Intake & Output 12/05/23 12/06/23 12/06/23 18:59 06:59 18:59 Intake Total 1400 260 120 Output Total 2 Balance 1398 260 120 Weight 59.1 kg Intake: IV 20 20 Invasive Line 2 20 20 Oral 1380 240 120 Output: Stool 2 Other: Voiding Method Bedside Commode Bedside Commode # Voids 2 # Bowel Movements 0 - Exam No acute distress, oriented 3. Currently on 4 L nasal cannula. No respiratory distress. Mild conversational dyspnea. HEENT examination is grossly unremarkable. Mucous membranes are moist. No oral lesions. Neck supple. Full range of motion. No adenopathy thyromegaly or neck vein distention. Cardiovascular examination reveals regular rhythm rate. S1-S2 normal. No S3 or S4. No discernible murmur noted. Heart rate 79 bpm. Lungs reveal minimal basilar crackles. Scattered rhonchi. No wheezes. Breath sounds are equal. Saturations are 96%. Abdomen soft bowel sounds are heard. No masses or tenderness. Extremities are intact. No cyanosis clubbing or edema. Skin is without rash or lesion. Neurologic examination is brief but nonfocal. - Labs CBC & Chem 7: 12/06/23 05:42 12/06/23 05:42 Labs: Abnormal Lab Results - Last 24 Hours (Table) 12/06/23 12/06/23 Range/Units 05:42 05:42 Hgb 10.9 L (11.4-16.0) gm/dL Hct 33.9 L (34.0-46.0) % Lymphocytes # 0.6 L (1.0-4.8) k/uL Sodium 133 L (137-145) mmol/L Chloride 96 L (98-107) mmol/L BUN 36 H (7-17) mg/dL Creatinine 1.16 H (0.52-1.04) mg/dL Glucose 152 H (74-99) mg/dL Assessment and Plan Assessment: New onset atrial fibrillation with rapid ventricular response. Possible acute COPD exacerbation, with possible left lower lobe pneumonia. Acute congestive heart failure, secondary to atrial fibrillation/RVR. Acute hypoxemic respiratory failure, secondary to above. Elevated troponins, likely secondary to supply/demand mismatch. Acute on chronic kidney disease. History of hypertension. History of hyperlipidemia. History of abdominal aortic aneurysm. Former tobacco dependence. Plan: Plan dated December 04 2023. The patient was seen in room 365. The patient is currently doing relatively well. She was sitting on top of the bed. A family member was in the room with her. She is currently on 8 L nasal cannula. She is not receiving any IV fluids. Likely her shortness of breath with a combination of atrial fibrillat ion with RVR and CHF, as well as COPD exacerbation. Labs, x-rays, medications are reviewed. We will continue to follow make recommendations along the way. Prognosis is guarded. Plan dated December 05, 2023. The patient's Solu-Medrol was increased to 60 mg every 6 hours. Symbicort was discontinued in favor of budesonide 1 mg, mixed with formoterol 20 mcg, twice a day. We will check a procalcitonin level. The patient's chest x-ray showed a patchy infiltrate left lower lobe. This may represent pneumonia. The patient may benefit from antibiotics, should her procalcitonin level be elevated. In addition, the patient does have a component of fluid overload/CHF, secondary to atrial fibrillation/RVR. We will continue to follow. The patient appears stable. Her oxygen requirements have actually come down. Plan dated December 06, 2023. The patient's breathing is improved. She has been weaned down to 4 L. Saturations are 96%. We added Solu-Medrol, as well as budesonide, and formoterol. She continues on antibiotic. Labs, x-rays, medications are reviewed. The patient was a heavy smoker for many many years. She quit smoking in May 2023. She likely has pretty significant COPD. She does have shortness of breath on exertion. We will continue to follow make recommendations along the way. Prognosis is guarded. Time with Patient: Less than 30
[2023-12-06] MEDS: AZITHROMYCIN 500 MG TAB PO SCH (12:04)
--- NOTE | 2023-12-07 03:30 | PN ---
PROGRESS NOTE DATE OF SERVICE: 12/06/2023 SUBJECTIVE: This is an 83-year-old woman who was admitted with COPD exacerbation as well as new- onset atrial fibrillation. She is being closely monitored. The patient will most likely require home O2 and nebulizers. No chest pain. No palpitation. PHYSICAL EXAMINATION: VITAL SIGNS: Pulse is 73, blood pressure n, respirations 20. CHEST: Bilateral scattered rhonchi and crackles. ABDOMEN: Soft. NERVOUS SYSTEM: Nonfocal. LABORATORY DATA: Creatinine 1.16. Other labs are noted. ASSESSMENT: 1. New-onset atrial fibrillation with a fast ventricular rate. 2. Chronic obstructive pulmonary disease acute exacerbation with acute hypoxic respiratory failure. 3. Troponin elevated up to 0.122. 4. Mild congestive heart failure with acute diastolic dysfunction. 5. Fall and multiple complex medical issues. RECOMMENDATIONS: I recommended to continue current management and continue with symptomatic treatment. Continue with bronchodilators and steroids. Repeat labs. Check for home O2. Arrange updrafts at home. Further recommendations to follow. GLADYSL / MADISONN: [id number] / LIDA
[2023-12-07 06:37] LABS: Basophils % (A) 0 %; Eosinophils % (A) 0 %; HCT 37.1 % (34.0-46.0); HGB 11.6 gm/dL (11.4-16.0); Hypochromasia Slight; Lymphocytes # (A) 0.7 k/uL (1.0-4.8); Lymphocytes % (A) 8 %; MCH 25.7 pg (25.0-35.0); MCHC 31.3 g/dL (31.0-37.0); Mean Platelet Volume 7.9; Monocytes # (A) 0.5 k/uL (0-1.0); Monocytes % (A) 5 %; Neutrophils # (A) 7.8 k/uL (1.3-7.7); Neutrophils % (A) 86 %; Platelet Count 350 k/uL (150-450); RBC 4.52 m/uL (3.80-5.40); RDW 15.8 % (11.5-15.5); WBC 9.1 k/uL (3.8-10.6)
[2023-12-07 06:56] LABS: Potassium 4.3 mmol/L (3.5-5.1)
[2023-12-07 06:57] LABS: African American GFR (CKD) 47 (>60 ml/min/1.73 sqM); Anion Gap 9 mmol/L; Blood Urea Nitrogen 43 mg/dL (7-17); Calcium 9.5 mg/dL (8.4-10.2); Carbon Dioxide 31 mmol/L (22-30); Chloride 95 mmol/L (98-107); Glucose 135 mg/dL (74-99); Non-African American GFR(CKD) 41 (>60 ml/min/1.73 sqM); Sodium 135 mmol/L (137-145)
--- NOTE | 2023-12-07 07:48 | P.PN ---
Subjective Progress Note Date: 12/07/23 The patient is a pleasant 83-year-old female patient who was admitted to the hospital with acute hypoxic respiratory failure as well as heart failure with preserved ejection fraction paroxysmal atrial fibrillation after she had a fall at home. She underwent further evaluation including echo showed preserved LV systolic function. December 06, 2023 The patient was seen and evaluated this morning. She is feeling better. The shortness of breath has improved which she was diagnosed with COPD and currently she is on oxygen which has been coming down with this. No symptoms of chest pain or chest discomfort. She has been maintaining normal sinus mechanism. She is on oral anticoagulation. Examination is remarkable for regular rhythm with a soft systolic murmur and clear breathing sounds bilaterally and no edema was noted December 07, 2023 The patient was seen and evaluated this morning. She is feeling better. The shortness of breath is definitely better. No symptoms of chest pain or chest discomfort but she has been maintaining normal sinus mechanism. She is on oral diuretics and currently she is on antibiotic for the COPD/pneumonia. Examination is remarkable for regular rhythm with a systolic murmur at the right upper sternal border and bilateral rhonchi and no edema was noted in the lower extremities. Assessment Hypoxic respiratory failure acute to be multifactorial COPD/pneumonia Heart failure with preserved ejection fraction Paroxysmal atrial fibrillation Evidence of myocardial injury with no evidence of ischemia Plan Continue the current medical regimen Try to wean the patient from oxygen Possible discharge in next 12 to 24 hours Objective - Vital Signs Vital signs: Vital Signs Temp 97.6 F 12/07/23 03:04 Pulse 66 12/07/23 03:04 Resp 20 12/07/23 03:04 BP 154/87 12/07/23 03:04 Pulse Ox 96 12/07/23 03:04 FiO2 Intake & Output 12/06/23 12/07/23 12/07/23 18:59 06:59 18:59 Intake Total 240 Output Total 1 200 Balance 239 -200 Weight 58.3 kg Intake: Oral 240 Output: Gastric Drainage 0 Urine 0 200 Stool 1 Urine/Stool Mix 0 Emesis 0 Oral Regurgitation 0 Other 0 Other: Voiding Method Bedside Commode Toilet # Voids 1 1 # Bowel Movements 0 - Labs CBC & Chem 7: 12/07/23 05:55 12/07/23 05:55 Labs: Abnormal Lab Results - Last 24 Hours (Table) 12/07/23 12/07/23 Range/Units 05:55 05:55 RDW 15.8 H (11.5-15.5) % Neutrophils # 7.8 H (1.3-7.7) k/uL Lymphocytes # 0.7 L (1.0-4.8) k/uL Sodium 135 L (137-145) mmol/L Chloride 95 L (98-107) mmol/L Carbon Dioxide 31 H (22-30) mmol/L BUN 43 H (7-17) mg/dL Creatinine 1.23 H (0.52-1.04) mg/dL Glucose 135 H (74-99) mg/dL
--- NOTE | 2023-12-07 11:40 | P.PN ---
Subjective Progress Note Date: 12/07/23 Principal diagnosis: Shortness of breath. Patient is an 83-year-old white female with past medical history significant for COPD, former tobacco smoker, hyperlipidemia, hypertension, AAA, chronic kidney disease. Her PCP is Dr. Kong. She presents to the emergency department late last night with a chief complaint of acute onset shortness of breath. She does have history of COPD. She Reportedly quit smoking approximately 1 year ago. Before this she was a one half to 1 pack/day smoker. While being evaluated in the emergency department, she was being found to be in new onset atrial fibrillation with rapid ventricular response with a rate of 175 bpm. She denies any history of atrial fibrillation or irregular heartbeat. 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 She was started on Cardizem infusion in the emergency department which is currently infusing at 5 mg/h. Heparin infusion also added by cardiology per protocol. On my evaluation, she is on a 15 L nonrebreather, oxygen saturation is 94%. Family is at bedside. She just got up to the bedside commode. In no acute respiratory distress at the moment. No accessory muscle use, conversational dyspnea. She denies any chest pain, heart palpitations, lightheadedness, syncopal events. She did fall while in the shower approximately 1 week ago. Denies hitting her head. Not on any blood thinners/anticoagulation. She states that her legs just gave out. Chest x-ray does not show any focal consolidation or no evidence of pneumonia. Cardiac silhouette appears stable without any vascular congestion or corina pulmonary edema. No pleural effusions or pneumothoraces. CBC on arrival unremarkable. No leukocytosis. CMP: Sodium 134, potassium 3.2, chloride 100, serum bicarb 22, BUN 37, creatinine 1.33, glucose 140. Lactic acid 1.8. Normal saline infusing at 130 ml/hr. LFTs mildly elevated. Troponins 0.122, 0.102, and 0.087 respectively. NT proBNP 19,000. During my evaluation, patient appears to have converted to normal sinus rhythm. Remaining vital signs are stable. Progress note dated December 04, 2023. 83-year-old female seen in consultation 1 day ago. The patient has a history of COPD, from more than 60 years of tobacco use, hyperlipidemia, hypertension, chronic kidney disease, among other things. The patient presented to the emergency department, with shortness of breath. She apparently was sent in by her primary care provider. She was found to have atrial fibrillation with RVR, and her chest x-ray was consistent with mild fluid overload, as well as an elevated N-terminal proBNP, which was 19,000. The patient was placed on a Cardizem drip, and she was seen in consultation. Currently, she is doing relatively well. She is on 8 L high flow nasal cannula. She is not receiving any IV fluids. Likely her hypoxemia as a result of both CHF, and COPD exacerbations. Clinically, she looks well, she feels well. She quit smoking at the beginning of this year. Current labs include a white count 7.9, hemoglobin 9.9, hematocrit 31.2, and a platelet count of 180,000. Sodium 133, potassium 3.7, chlorides 102, CO2 25, BUN 45, and creatinine 0.94. Glucose is 154. Progress note dated December 05, 2023. The patient is seen today in room 365. The patient remains on oxygen by nasal cannula at 6 L. Saturations are 94%. She is not receiving any IV fluids. Organ to increase her Solu-Medrol up to 60 mg every 6 hours, and check a procalcitonin level. In addition, her Symbicort will be discontinued, in favor of formoterol 20 mcg, mixed with budesonide 1 mg, twice a day. No new labs today. Labs from December 03 have been reviewed. Chest x-ray shows a patchy left lower lobe infiltrate. Progress note dated December 06, 2023. The patient is seen today in room 365. Currently, the patient is on 4 L nasal cannula. Her breathing is improved. The patient is currently on Augmentin. Procalcitonin level was 0.34. The patient is not receiving any IV fluids. White count 7.1, hemoglobin 10.9, hematocrit 33.9, platelet count 276,000. Sodium 133, potassium 3.9, chlorides 96, CO2 28, BUN 36, and creatinine 1.16. Glucose 152. N-terminal proBNP was 3500. Procalcitonin level was 0.34. Chest x-ray from yesterday shows patchy airspace disease, left lower lobe. Progress note dated December 07, 2023. 83-year-old female seen again in room 365. The patient is currently on 3 L of oxygen. She is not receiving any IV fluids. She appears to be relatively stable. She denies any respiratory difficulty or distress. White count 9.1, hemoglobin 9.6, hematocrit 37.1, platelet count 350,000. Sodium 135, potassium 4.3, chlorides 95, CO2 31, BUN 43, creatinine 1.23. Glucose is 135. Calcium is 9.5. Objective - Vital Signs Vital signs: Vital Signs Temp 98.1 F 12/07/23 08:47 Pulse 75 12/07/23 08:47 Resp 20 12/07/23 08:47 BP 148/61 12/07/23 08:47 Pulse Ox 93 L 12/07/23 08:47 FiO2 Intake & Output 12/06/23 12/07/23 12/07/23 18:59 06:59 18:59 Intake Total 240 120 Output Total 1 200 Balance 239 -80 Weight 58.3 kg Intake: Oral 240 120 Output: Gastric Drainage 0 Urine 0 200 Stool 1 0 Urine/Stool Mix 0 Emesis 0 Oral Regurgitation 0 Other 0 Other: Voiding Method Bedside Commode Toilet Toilet # Voids 1 1 # Bowel Movements 0 - Exam No acute distress, oriented 3. Currently on 3 L nasal cannula. No respiratory distress. Mild conversational dyspnea. HEENT examination is grossly unremarkable. Mucous membranes are moist. No oral lesions. Neck supple. Full range of motion. No adenopathy thyromegaly or neck vein distention. Cardiovascular examination reveals regular rhythm rate. S1-S2 normal. No S3 or S4. No discernible murmur noted. Heart rate 81 bpm. Lungs reveal minimal basilar crackles. Scattered rhonchi. No wheezes. Breath sounds are equal. Saturations are 93 %. Abdomen soft bowel sounds are heard. No masses or tenderness. Extremities are intact. No cyanosis clubbing or edema. Skin is without rash or lesion. Neurologic examination is brief but nonfocal. - Labs CBC & Chem 7: 12/07/23 05:55 12/07/23 05:55 Labs: Abnormal Lab Results - Last 24 Hours (Table) 12/07/23 12/07/23 Range/Units 05:55 05:55 RDW 15.8 H (11.5-15.5) % Neutrophils # 7.8 H (1.3-7.7) k/uL Lymphocytes # 0.7 L (1.0-4.8) k/uL Sodium 135 L (137-145) mmol/L Chloride 95 L (98-107) mmol/L Carbon Dioxide 31 H (22-30) mmol/L BUN 43 H (7-17) mg/dL Creatinine 1.23 H (0.52-1.04) mg/dL Glucose 135 H (74-99) mg/dL Assessment and Plan Assessment: New onset atrial fibrillation with rapid ventricular response. Possible acute COPD exacerbation, with possible left lower lobe pneumonia. Acute congestive heart failure, secondary to atrial fibrillation/RVR. Acute hypoxemic respiratory failure, secondary to above. Elevated troponins, likely secondary to supply/demand mismatch. Acute on chronic kidney disease. History of hypertension. History of hyperlipidemia. History of abdominal aortic aneurysm. Former tobacco dependence. Plan: Plan dated December 04 2023. The patient was seen in room 365. The patient is currently doing relatively well. She was sitting on top of the bed. A family member was in the room with her. She is currently on 8 L nasal cannula. She is not receiving any IV fluids. Likely her shortness of breath with a combination of atrial fibrillation with RVR and CHF, as well as COPD exacerbation. Labs, x-rays, medications are reviewed. We will continue to follow make recommendations along the way. Prognosis is guarded. Plan dated December 05, 2023. The patient's Solu-Medrol was increased to 60 mg every 6 hours. Symbicort was discontinued in favor of budesonide 1 mg, mixed with formoterol 20 mcg, twice a day. We will check a procalcitonin level. The patient's chest x-ray showed a patchy infiltrate left lower lobe. This may represent pneumonia. The patient may benefit from antibiotics, should her procalcitonin level be elevated. In addition, the patient does have a component of fluid overload/CHF, secondary to atrial fibrillation/RVR. We will continue to follow. The patient appears stable. Her oxygen requirements have actually come down. Plan dated December 06, 2023. The patient's breathing is improved. She has been weaned down to 4 L. Saturations are 96%. We added Solu-Medrol, as well as budesonide, and formoterol. She continues on antibiotic. Labs, x-rays, medications are reviewed. The patient was a heavy smoker for many many years. She quit smoking in May 2023. She likely has pretty significant COPD. She does have shortness of breath on exertion. We will continue to follow make recommendations along the way. Prognosis is guarded. Plan dated December 07, 2023. The patient continues on appropriate medications, including updrafts, corticosteroids, etc. In addition, she continues on antibiotics. Labs, x-rays, medications are reviewed. The patient states that her breathing is improved. She is coughing, but not producing any phlegm. The patient was a heavy smoker for many years. She likely has significant COPD. She does complain of short ness of breath on exertion, even before she got sick. Labs, x-rays, medications are reviewed. Prognosis is guarded. She will continue on Singulair, Solu- Medrol, formoterol, budesonide, and DuoNeb. Time with Patient: Less than 30
[2023-12-07 16:29] VITALS: TEMP 97.8
--- NOTE | 2023-12-08 04:09 | PN ---
PROGRESS NOTE DATE OF SERVICE: 12/07/2023 This is an 83-year-old woman, who was admitted with new onset atrial fibrillation and had severe COPD also. The patient is feeling much better. No chest pain. No palpitation. The patient will need home O2 as well as home nebulizer to be arranged. PHYSICAL EXAMINATION: VITAL SIGNS: Pulse 73, blood pressure n, respirations 18. CHEST: Bilateral scattered rhonchi and crackles. ABDOMEN: Soft. NEUROLOGICAL: Nonfocal. LABORATORY DATA: Sodium 135. ASSESSMENT: 1. New-onset atrial fibrillation with fast ventricular rate. 2. Chronic obstructive pulmonary disease acute exacerbation and acute hypoxic respiratory failure, present on admission. 3. Troponin elevated up to 0.122. 4. Mild congestive heart failure with acute diastolic dysfunction. 5. Fall and multiple complex medical issues. RECOMMENDATIONS: Recommended to continue with current management and continue symptomatic treatment. Continue the bronchodilators and steroids. Closely follow with multiple consultants. Empiric antibiotics. Guarded prognosis. Arrange home O2 and home nebulizer. Possible discharge in the next 24 hours. MMODL / MADISONN: [id number] / MTDD
[2023-12-08 08:52] VITALS: RESP 18
--- NOTE | 2023-12-08 10:46 | P.PN ---
Progress Note - Text Progress Note Date: 12/08/23 Patient will require nebulizer as well as home oxygen via nasal cannula at 4 L to manage COPD. Patient will continue with DuoNeb treatments 4 times daily and as needed and 4 L of oxygen via nasal cannula on discharge. Home O2 evaluation was performed and patient had an oxygen desaturation down to 85% at rest on room air. Prescription provided to case management/social work for discharge planning. The impression and plan of care has been dictated by Chata Anaya Nurse Pr actitioner as directed. Dr. Danial MD I have performed a history and examination and MDM of this patient, discussed the same with the dictator, and agree with the dictator's assessment and plan as written ,documented as a scribe. Based on total visit time, I have performed more than 50% of the visit.
--- NOTE | 2023-12-08 11:55 | XR ---
EXAMINATION TYPE: XR chest 1V portable DATE OF EXAM: 12/08/2023 HISTORY: Shortness of breath. COMPARISON: 12/05/2023 TECHNIQUE: Single view of the chest is submitted. FINDINGS: Demonstrated are scattered senescent parenchymal change. Patchy left lower lobe infiltrate persists although has improved in the interval. The heart is stable. Hilar and mediastinal structures are within normal limits. Degenerative changes are seen of the dorsal spine. IMPRESSION: 1. Patchy left lower lobe infiltrate persists although has improved in the interval.
--- NOTE | 2023-12-08 12:02 | P.PN ---
Subjective Progress Note Date: 12/08/23 The patient is a pleasant 83-year-old female patient who was admitted to the hospital with acute hypoxic respiratory failure as well as heart failure with preserved ejection fraction paroxysmal atrial fibrillation after she had a fall at home. She underwent further evaluation including echo showed preserved LV systolic function. December 06, 2023 The patient was seen and evaluated this morning. She is feeling better. The shortness of breath has improved which she was diagnosed with COPD and currently she is on oxygen which has been coming down with this. No symptoms of chest pain or chest discomfort. She has been maintaining normal sinus mechanism. She is on oral anticoagulation. Examination is remarkable for regular rhythm with a soft systolic murmur and clear breathing sounds bilaterally and no edema was noted December 07, 2023 The patient was seen and evaluated this morning. She is feeling better. The shortness of breath is definitely better. No symptoms of chest pain or chest discomfort but she has been maintaining normal sinus mechanism. She is on oral diuretics and currently she is on antibiotic for the COPD/pneumonia. Examination is remarkable for regular rhythm with a systolic murmur at the right upper sternal border and bilateral rhonchi and no edema was noted in the lower extremities. 12/08/2023 Patient was evaluated this morning. She is feeling better. She reports that shortness of breath is better. She is maintaining normal sinus rhythm on telemetry. She is on oral diuretics.\ On examination she had regular pulses, mild systolic murmur audible in the aortic area, bilateral rhonchi audible lung [place], no swelling in bilateral lower extremity Assessment Hypoxic respiratory failure acute to be multifactorial COPD/pneumonia Heart failure with preserved ejection fraction Paroxysmal atrial fibrillation Evidence of myocardial injury with no evidence of ischemia Plan At this time patient is on optimal cardiac medications. Patient is cleared from cardiovascular standpoint Evaluate for the need for home oxygen, perform 6-minute walk test prior to discharge At this time cardiology team will sign off. Please reconsult us in case of any question Objective - Vital Signs Vital signs: Vital Signs Temp 97.8 F 12/08/23 08:14 Pulse 70 12/08/23 11:43 Resp 18 12/08/23 11:43 BP 131/65 12/08/23 08:14 Pulse Ox 92 L 12/08/23 08:48 FiO2 Intake & Output 12/07/23 12/08/23 12/08/23 18:59 06:59 18:59 Intake Total 360 236 Output Total 200 200 Balance 160 -200 236 Weight 56.9 kg Intake: Oral 360 236 Output: Urine 200 200 Stool 0 0 Other: Voiding Method Toilet Toilet # Voids 2 - Labs CBC & Chem 7: 12/07/23 05:55 12/07/23 05:55
[2023-12-08 12:41] VITALS: BP 141/63; PULSE 69
--- NOTE | 2023-12-08 14:53 | P.PN ---
Subjective Progress Note Date: 12/08/23 Principal diagnosis: New onset atrial fibrillation with RVR Patient is an 83-year-old white female with past medical history significant for COPD, former tobacco smoker, hyperlipidemia, hypertension, AAA, chronic kidney disease. Her PCP is Dr. Kong. She presents to the emergency department late last night with a chief complaint of acute onset shortness of breath. She does have history of COPD. She Reportedly quit smoking approximately 1 year ago. Before this she was a one half to 1 pack/day smoker. While being evaluated in the emergency department, she was being found to be in new onset atrial fibrillation with rapid ventricular response with a rate of 175 bpm. She denies any history of atrial fibrillation or irregular heartbeat. 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 She was started on Cardizem infusion in the emergency department which is currently infusing at 5 mg/h. Heparin infusion also added by cardiology per protocol. On my evaluation, she is on a 15 L nonrebreather, oxygen saturation is 94%. Family is at bedside. She just got up to the bedside commode. In no acute respiratory distress at the moment. No accessory muscle use, conversational dyspnea. She denies any chest pain, heart palpitations, lightheadedness, syncopal events. She did fall while in the shower approximately 1 week ago. Denies hitting her head. Not on any blood th inners/anticoagulation. She states that her legs just gave out. Chest x-ray does not show any focal consolidation or no evidence of pneumonia. Cardiac silhouette appears stable without any vascular congestion or corina pulmonary edema. No pleural effusions or pneumothoraces. CBC on arrival unremarkable. No leukocytosis. CMP: Sodium 134, potassium 3.2, chloride 100, serum bicarb 22, BUN 37, creatinine 1.33, glucose 140. Lactic acid 1.8. Normal saline infusing at 130 ml/hr. LFTs mildly elevated. Troponins 0.122, 0.102, and 0.087 respectively. NT proBNP 19,000. During my evaluation, patient appears to have converted to normal sinus rhythm. Remaining vital signs are stable. Progress note dated December 04, 2023. 83-year-old female seen in consultation 1 day ago. The patient has a history of COPD, from more than 60 years of tobacco use, hyperlipidemia, hypertension, chronic kidney disease, among other things. The patient presented to the emergency department, with shortness of breath. She apparently was sent in by her primary care provider. She was found to have atrial fibrillation with RVR, and her chest x-ray was consistent with mild fluid overload, as well as an elevated N-terminal proBNP, which was 19,000. The patient was placed on a Cardizem drip, and she was seen in consultation. Currently, she is doing relatively well. She is on 8 L high flow nasal cannula. She is not receiving any IV fluids. Likely her hypoxemia as a result of both CHF, and COPD exacerbat ions. Clinically, she looks well, she feels well. She quit smoking at the beginning of this year. Current labs include a white count 7.9, hemoglobin 9.9, hematocrit 31.2, and a platelet count of 180,000. Sodium 133, potassium 3.7, chlorides 102, CO2 25, BUN 45, and creatinine 0.94. Glucose is 154. Progress note dated December 05, 2023. The patient is seen today in room 365. The patient remains on oxygen by nasal cannula at 6 L. Saturations are 94%. She is not receiving any IV fluids. Chrisa n to increase her Solu-Medrol up to 60 mg every 6 hours, and check a procalcitonin level. In addition, her Symbicort will be discontinued, in favor of formoterol 20 mcg, mixed with budesonide 1 mg, twice a day. No new labs today. Labs from December 03 have been reviewed. Chest x-ray shows a patchy left lower lobe infiltrate. Progress note dated December 06, 2023. The patient is seen today in room 365. Currently, the patient is on 4 L nasal cannula. Her breathing is improved. The patient is currently on Augmentin. Procalcitonin level was 0.34. The patient is not receiving any IV fluids. Whi te count 7.1, hemoglobin 10.9, hematocrit 33.9, platelet count 276,000. Sodium 133, potassium 3.9, chlorides 96, CO2 28, BUN 36, and creatinine 1.16. Glucose 152. N-terminal proBNP was 3500. Procalcitonin level was 0.34. Chest x-ray from yesterday shows patchy airspace disease, left lower lobe. Patient was seen today on 12/08/2023, patient seems to be feeling better, breathing a lot easier. She is on 3.5 L nasal cannula, O2 sats is 91%, however the patient is feeling better clinically breathing easier and her chest x-ray is showing some improvement in her left lower lobe infiltrate/pneumonia. Her admission procalcitonin level was 0.34 in addition she also had elevated BNP level of 3500.WBC count is 9.1 hemoglobin 11.6 basic metabolic profile is normal BUN is 43 creatinine 1.23. Objective - Vital Signs Vital signs: Vital Signs Temp 97.8 F 12/08/23 08:14 Pulse 69 12/08/23 12:39 Resp 18 12/08/23 12:39 BP 141/63 12/08/23 12:39 Pulse Ox 91 L 12/08/23 12:39 FiO2 Intake & Output 12/07/23 12/08/23 12/08/23 18:59 06:59 18:59 Intake Total 360 354 Output Total 200 200 0 Balance 160 -200 354 Weight 56.9 kg Intake: Oral 360 354 Output: Urine 200 200 Stool 0 0 0 Other: Voiding Method Toilet Toilet Toilet # Voids 2 - Exam GENERAL: Revealed 83-year-old female in no distress extremely pleasant HEENT: Head is normocephalic. Pupils are equal, round. Sclerae anicteric. Mucous membranes of the mouth are moist. Neck supple. No JVD or thyromegaly LUNGS: Respirations even and unlabored. Clear throughout no crackles rhonchi or wheezes HEART: Regular rate and rhythm. S1 and S2 heard. ABDOMEN: Soft. Nondistended. Nontender. EXTREMITIES: Normal range of motion. No clubbing or cyanosis. Peripheral p ulses intact. No lower extremity edema NEUROLOGIC: Awake and alert. Oriented x 3. Psychiatric: Normal mood affect and normal mental status examination. Skin: No rashes - Labs CBC & Chem 7: 12/07/23 05:55 12/07/23 05:55 Assessment and Plan Assessment: Impression: New onset atrial fibrillation with RVR Acute left lower lobe pneumonia Possible mild diastolic congestive heart failure Abnormal troponins on presentation with acute myocardial injury without ischemia this is felt to be related to A-fib with RVR Benign essential hypertension Dyslipidemia History of abdominal aortic aneurysm Ex-smoker Possible underlying COPD but does not seem to be active at present Acute on chronic kidney disease Recommendation: Reviewed chest x-ray which was done today, showing definite improvement in left lower lobe infiltrate. Patient is improving steadily since admission Consider discharge planning on bronchodilators, antibiotics, diuretics, Follow-up on outpatient basis. Patient could be considered for discharge if cleared by other consultants. Will continue to follow in the meantime. Time with Patient: Less than 30
== END 2023-12-08 15:48 | disposition home or self-care (01) | DRG 280 ==
LOC: EC 21:56 → 3SCARD 12-03 00:37
PROVIDERS: ADMIT Hospitalist; ATTEND Hospitalist
PROC: 3E0F7SF Introduction of Other Gas into Respiratory Tract, Via Natural or Artificial Opening (ICD-10-PCS; principal; 2023-12-03)
DX: I13.0 Hypertensive heart and chronic kidney disease with heart failure and stage 1 through stage 4 chronic kidney disease, or unspecified chronic kidney disease (principal); I50.31 Acute diastolic (congestive) heart failure; I21.A1 Myocardial infarction type 2; J96.01 Acute respiratory failure with hypoxia; J18.9 Pneumonia, unspecified organism; E87.1 Hypo-osmolality and hyponatremia; J44.1 Chronic obstructive pulmonary disease with (acute) exacerbation; J44.0 Chronic obstructive pulmonary disease with (acute) lower respiratory infection; N17.9 Acute kidney failure, unspecified; F17.210 Nicotine dependence, cigarettes, uncomplicated; E78.5 Hyperlipidemia, unspecified; N18.30 Chronic kidney disease, stage 3 unspecified; I08.1 Rheumatic disorders of both mitral and tricuspid valves; I48.0 Paroxysmal atrial fibrillation; F41.9 Anxiety disorder, unspecified; Z79.01 Long term (current) use of anticoagulants; W18.2XXA Fall in (into) shower or empty bathtub, initial encounter; Z20.822 Contact with and (suspected) exposure to COVID-19; Y92.009 Unspecified place in unspecified non-institutional (private) residence as the place of occurrence of the external cause; Y93.E1 Activity, personal bathing and showering; Z66 Do not resuscitate; Z79.899 Other long term (current) drug therapy; Z86.79 Personal history of other diseases of the circulatory system; Z90.710 Acquired absence of both cervix and uterus; Z87.19 Personal history of other diseases of the digestive system; Z98.42 Cataract extraction status, left eye; Z98.41 Cataract extraction status, right eye; Z96.659 Presence of unspecified artificial knee joint; Z88.1 Allergy status to other antibiotic agents; Z88.8 Allergy status to other drugs, medicaments and biological substances
CPT/HCPCS: 36415; 71045; 71046; 80048; 80053; 83605; 83735; 83880; 84145; 84443; 84484; 85025; 85027; 85610; 85730; 93005; 93306; 94640; 94760; 96365; 96366; 96368; 96372; 96375; 99291